=== PATIENT | male | born 1940 | race Caucasian/White ===

== ENCOUNTER → 2017-06-13 | Day surgery (SDC) | payer MEDICARE ==
[2017-06-10 14:55] VITALS: BMI 32.1
[~2017-06-13] MED LIST: MIDAZOLAM 2 MG/2 ML VIAL IVP ONE; MIDAZOLAM 2 MG/2 ML VIAL ONE; SODIUM CHLORIDE 0.9% 1,000 ML IV SCH; SODIUM CHLORIDE 0.9% 500 ML IV ONE; fentaNYL (PF) 50 MCG/ML 2 ML AMP IVP ONE; fentaNYL (PF) 50 MCG/ML 2 ML AMP ONE
[2017-06-13 10:49] VITALS: TEMP 97.7
[2017-06-13 11:16] LABS: Glucose,Whole Blood 116 mg/dL (75-99)
[2017-06-13] MEDS: BENZOCAINE SPRAY 1 CAN MUCOUS MEM ONE ×2 (11:33→11:39)
[2017-06-13 12:40] VITALS: RESP 16
[2017-06-13 12:59] VITALS: BP 123/62; PULSE 56
--- NOTE | 2017-07-01 11:23 | P.TEE ---
Indications for Procedure(s): Assessment of aortic stenosis Date of Procedure: 06/13/17 Preoperative Diagnosis: Severe aortic stenosis Postoperative Diagnosis: Moderate to severe aortic stenosis Procedure(s) Performed: MARIA M examination Description of Procedure(s): INDICATION: This patient with history of previous bypass surgery was noted to have increasing gradient across the aortic valve. Recent values are suggestive of possible severe aortic stenosis. Patient is advised to have MARIA M examination for further evaluation. CONSENT: Informed consent was obtained verbally from patient PROCEDURE:, Patient was brought to the lab in a fasting state. He was prepped and draped in the usual fashion. He was given IV Versed 2 mg and 50 g of fentanyl for conscious sedation. Patient was continuously monitored. A lubricated Omni probe was introduced into the oropharynx after his total was sprayed with Cetacaine. The probe was gently advanced into the esophagus and stomach. Multiple views were obtained. Color and pulse Doppler studies were performed. Saline contrast bubble injections also performed. Patient tolerated the procedure well FINDINGS:. The aortic valve appeared to be tricuspid with calcification and restricted opening excursion. The valve area is calculated as 0.6 2.8 by planimetry. He. Gradient of 46 with a mean of 22 was obtained across the aortic valve. These findings are size to moderate to severe aortic stenosis. Mitral valve showed mild regurgitation. Left atrial appendage is of free of any clot. The interatrial septum appeared to be intact without any spontaneous shunt. Contrast bubble injection also did not reveal any shunting. Left ankle function is good. No Sigmund plaque in the aorta IMPRESSION: #1. Moderate to severe aortic stenosis. #2. No clot in the left atrial appendage. #3. No PFO #4. Left ankle function is preserved PLAN:. Continue medical therapy. Patient did a need cardiac catheterization to rule out any progression of ischemic heart disease and possible aortic valve replacement in the near future
== END ==
LOC: CATHCVL 10:28
PROVIDERS: ATTEND Internal Medicine Cardiovascular Disease
DX: I08.0 Rheumatic disorders of both mitral and aortic valves (principal); I25.10 Atherosclerotic heart disease of native coronary artery without angina pectoris; I10 Essential (primary) hypertension; E78.5 Hyperlipidemia, unspecified; E11.9 Type 2 diabetes mellitus without complications; Z79.84 Long term (current) use of oral hypoglycemic drugs; Z87.891 Personal history of nicotine dependence; Z95.5 Presence of coronary angioplasty implant and graft; Z95.1 Presence of aortocoronary bypass graft; Z82.49 Family history of ischemic heart disease and other diseases of the circulatory system; Z79.82 Long term (current) use of aspirin; Z79.899 Other long term (current) drug therapy
CPT/HCPCS: 93312; 93320; 93325; J2250; J3010

== ENCOUNTER 2018-08-05 06:30 | Day surgery (SDC) | payer MEDICARE ==
[2018-07-24 16:32] VITALS: BMI 32.3
[~2018-08-05 06:30] MED LIST changes: +ALPRAZolam 0.25 MG TAB PO PRN; +ALPRAZolam 0.5 MG TAB PO PRN; +ASPIRIN 325 MG TAB PO STA; +ATORVASTATIN 80 MG TAB PO STA; -MIDAZOLAM 2 MG/2 ML VIAL IVP ONE; -MIDAZOLAM 2 MG/2 ML VIAL ONE; +NITROGLYCERIN SL TABS 0.4 MG TAB SUBLINGUAL PRN; -SODIUM CHLORIDE 0.9% 1,000 ML IV SCH; +SODIUM CHLORIDE 0.9% 1,000 ML in EMPTY BAG 1 BAG IV ONE; -SODIUM CHLORIDE 0.9% 500 ML IV ONE; -fentaNYL (PF) 50 MCG/ML 2 ML AMP IVP ONE; -fentaNYL (PF) 50 MCG/ML 2 ML AMP ONE
[2018-08-05 07:04] LABS: Glucose,Whole Blood 127 mg/dL (75-99)
[2018-08-05] MEDS ORDERED: LIDOCAINE 1% INJ 10MG/ML (20 ML MDV) ONE (09:09)
[2018-08-05] MEDS ORDERED: fentaNYL (PF) 50 MCG/ML 2 ML AMP ONE (09:18)
[2018-08-05] MEDS ORDERED: MIDAZOLAM (PF) 2 MG/2 ML VIAL IV ONE (09:21)
[2018-08-05] MEDS ORDERED: fentaNYL (PF) 50 MCG/ML 2 ML AMP IV ONE (09:21)
[2018-08-05] MEDS ORDERED: LIDOCAINE 1% INJ 10MG/ML (20 ML MDV) SQ ONE ×2 (09:22→09:24)
[2018-08-05] MEDS ORDERED: IV FLUID CONTINUATION 1,000 ML IV ONE (09:40)
[2018-08-05 10:14] LABS: O2 Sat Blood Gas 75.8 %
[2018-08-05] MEDS ORDERED: IOPAMIDOL-370 125ML BTL INJ ONE (10:14)
[2018-08-05] MEDS ORDERED: BIVALIRUDIN 250 MG in SODIUM CHLORIDE 0.9% 50 ML IV ONE (10:14)
[2018-08-05] MEDS ORDERED: BIVALIRUDIN BOLUS 250 MG/50 ML IV ONE (10:14)
[2018-08-05 10:15] LABS: O2 Sat Blood Gas 75.3 %
[2018-08-05 10:17] LABS: O2 Sat Blood Gas 98.2 %
[2018-08-05] MEDS ORDERED: NITROGLYCERIN 1000MCG/10ML SYRINGE INTRACORON ONE ×3 (11:39→11:47)
[2018-08-05] MEDS ORDERED: TICAGRELOR 90 MG TAB ONE (11:58)
[2018-08-05] MEDS ORDERED: ZOLPIDEM 5 MG TAB PO PRN (12:08)
[2018-08-05] MEDS ORDERED: MAG HYDROX/AL HYDROX/SIMETH 30 ML CUP PO PRN (12:08)
[2018-08-05] MEDS ORDERED: NITROGLYCERIN SL TABS 0.4 MG TAB SUBLINGUAL PRN (12:08)
[2018-08-05] MEDS ORDERED: TICAGRELOR 90 MG TAB PO ONE (12:08)
[2018-08-05] MEDS ORDERED: ATROPINE SULFATE 0.1 MG/ML 10ML SYRINGE IV PRN (12:08)
[2018-08-05] MEDS ORDERED: RX INFO: IV CONTRAST WAS GIVEN 1 EACH MISC MISCELLANE PRN (12:08)
[2018-08-05] MEDS ORDERED: FAMOTIDINE 20 MG TAB PO PRN (12:12)
[2018-08-05] MEDS ORDERED: SODIUM CHLORIDE 0.9% 1,000 ML IV SCH (12:15)
--- NOTE | 2018-08-05 12:53 | PTCA ---
PERCUTANEOUSTRANS CORORONARY ANGIOGRAPHY DATE OF SERVICE: 08/05/2018 PROCEDURE: PTCA and stenting of saphenous vein graft to RCA in the proximal and mid portion of the body of the graft. PERFORMED BY: Dr. Raleigh Trivedi. SEDATION: Moderate conscious sedation time was 41 minutes. The patient was administered Versed. His oxygen saturation, hemodynamics and EKG were monitored closely. CLINICAL INFORMATION: Mr. Dwight Cross is a 78-year-old gentleman with diabetes, hypertension, hyperlipidemia, CAD, prior bypass surgery and also mild to moderate aortic stenosis. Apparently underwent aortocoronary bypass surgery in 1989 with SAENZ to LAD, vein graft to the obtuse marginal and vein graft to the RCA. The vein graft to the obtuse marginal was occluded. He had a stenting of knik circumflex performed in 2001. He came in with symptoms of unstable angina and also has aortic stenosis. Dr. Larson performed a right and left heart catheterization and study revealed that there was a significant disease involving the vein graft to the RCA, both in the proximal and distal portion of about 90% and 80% of the calcification. He was advised intervention that was performed in the same setting. There was some tortuosity in the right iliac area. A Glidewire was used to gain access. PROCEDURE NOTE: The existing 6-Kyrgyz introducer in the right femoral artery was used to perform procedure. A Glidewire was used to advance and a right coronary bypass guide catheter was used to cannulate the coronary artery. A run-through wire was used to cross the lesion. Predilatation was performed with a 6 well mm long 2.5 caliber [place] Trek balloon. Multiple inflations were given. The distal lesion was quite tight and at 15 atmospheres. The balloon burst but there was improvement in lesion. No consequences occurred. Then, I went over with a 3.25 caliber 15 mm long Xience stent and deployed this at the distal lesion. A 12 mm long 3.5 caliber Xience stent in the proximal portion was deployed. Patient received Angiomax bolus and infusion. He received 180 mg of Brilinta. Excellent angiographic result without complication was achieved. The arterial sheath was taken out and Angio-Seal device used to secure hemostasis. The venous sheath was sutured in and she was sent to the [facility] for the sheath to be pulled in 1 hour. Excellent angiographic result without complication was achieved. Findings were discussed with the patient, his and also Dr. Larson. I expect he will be discharged tomorrow. RAYO / HANNAN: [id number] /
[2018-08-05] MEDS: LISINOPRIL 20 MG TAB PO SCH (16:44)
[2018-08-05 16:58] LABS: Glucose,Whole Blood 124 mg/dL (75-99)
--- NOTE | 2018-08-05 17:46 | P.CARDCATH ---
Date of Procedure: 08/05/18 Preoperative Diagnosis: Severe aortic stenosis by echo and also known ischemic heart disease Postoperative Diagnosis: Noncritical aortic stenosis. Critical lesions involving the RCA graft Procedure(s) Performed: Right and left heart catheterization without left ventriculography Description of Procedure: HISTORY: This is a 78-year-old gentleman with history of ischemic heart disease with a previous bypass surgery with the SAENZ graft to the LAD, vein graft to the OM branch and also vein graft to the RCA. In 2001, patient was found to have total occlusion of the vein graft to the intermediate/OM branch and patent SAENZ graft to the LAD and vein graft to the RCA. Patient had stent placement of the OM branch. Recently patient has been complaining of some chest pain and shortness of breath. Patient had echocardiogram and MARIA M were suggestive of severe aortic stenosis. Patient is advised to have a right and left heart catheterization for definitive diagnosis CONSENT:I have discussed the risks, benefits and alternative therapies for the above-mentioned procedure and for both sedation/analgesia as well as necessary blood product administration, if indicated, as they pertain to this patient. The patient has indicated understanding and acceptance of the risks and procedures discussed. PROCEDURE: Left heart catheterization: Patient was brought to the lab in a fasting state. Patient was given some IV sedation. The right groin is infiltrated with lidocaine and right femoral artery was entered using Seldinger technique. A 6-Turkmen catheter was left in place and selective coronary arteriography was performed. Patient tolerated the procedure well. Femoral angiogram was performed . Patient was found to have a critical lesion involving the vein graft to the RCA. He went on to have stent placement of the graft to the RCA. Right heart catheterization: Right heart catheterization was performed using a [place]-Demetris catheter under Seldinger technique. Patient tolerated the procedure well. Hemodynamics: #1. Right heart catheterization: Right atrial pressure was about 4-6. Right ventricular pressure was about 42/6. Pulmonary artery pressure was about 42/8-12. Pulmonary wedge pressure is about 12-14. Cardiac output by thermodilution method was 4.9. By Billie method was 5.2. The gradient across the aortic valve was only 8. There appears to be gradient between the aorta and f emoral artery suggestive of aortoiliac disease. Conscious Sedation: Versed 1 mg Fentanyl 50 g Duration to 2 minutes SELECTIVE CORONARY ARTERIOGRAPHY: LEFT MAIN: Could not be selectively engaged. It provides only blood flow to the circumflex system. Subselectively injected THE LEFT ANTERIOR DESCENDING CORONARY ARTERY: . This is totally occluded THE LEFT CIRCUMFLEX AND IS CORONARY ARTERY: Consistent OM branch and 2 other branches which appear to be patent and free of occlusive disease THE RIGHT CORONARY ARTERY: . Total occluded The VEIN GRAFT TO THE RCA: This is moderate in caliber with a diffuse plaque. There is critical 95% stenosis in the proximal and distal portion of the body of the graft. The distal mcgrath vessels appear to be relatively small in caliber. THE SAENZ GRAFT TO THE LAD: The SAENZ graft to LAD is patent throat its length except there appears to be kinking of the distal anastomosis. This has been stable. The distal LAD shows mild plaque without any significant lesions LEFT VENTRICULOGRAPHY: Not performed FINAL IMPRESSION: #1. Noncritical aortic stenosis. #2. Critical lesion involving the vein graft to the RCA PLAN: And placement of the graft to the RCA PROGNOSIS: Guarded
[2018-08-05] MEDS ORDERED: METOPROLOL SUCCINATE (ER) 50 MG TAB.ER.24H PO SCH (21:00)
[2018-08-05] MEDS ORDERED: amLODIPine 5 MG TAB PO STA (22:49)
[2018-08-06 06:41] LABS: Potassium 4.7 mmol/L (3.5-5.1)
[2018-08-06 06:58] LABS: HCT 40.8 % (39.0-53.0); HGB 13.1 gm/dL (13.0-17.5); MCH 27.5 pg (25.0-35.0); MCHC 32.1 g/dL (31.0-37.0); MCV 85.6 fL (80.0-100.0); Mean Platelet Volume 6.9; Platelet Count 290 k/uL (150-450); RBC 4.77 m/uL (4.30-5.90); RDW 15.8 % (11.5-15.5); WBC 14.2 k/uL (3.8-10.6)
[2018-08-06 07:50] LABS: Eosinophils # (M) 0.28 k/uL (0-0.7); Lymphocytes # (M) 1.56 k/uL (1.0-4.8); Monocytes # (M) 1.28 k/uL (0-1.0); Neutrophils # (M) 11.08 k/uL (1.3-7.7); Neutrophils % (M) 78 %; Nucleated Red Blood Cells 0 /100 WBC (0-0); Total Cells Counted 100
[2018-08-06 08:26] VITALS: BP 171/78; PULSE 71; RESP 20; TEMP 98.7
[2018-08-06] MEDS: LISINOPRIL 20 MG TAB PO SCH (08:36)
[2018-08-06] MEDS ORDERED: EZETIMIBE 10 MG TAB PO SCH (09:00)
[2018-08-06] MEDS ORDERED: amLODIPine 5 MG TAB PO SCH (09:00)
[2018-08-06] MEDS ORDERED: MULTIVITAMINS, THERA 1 EACH TAB PO SCH (09:00)
[2018-08-06] MEDS ORDERED: PIOGLITAZONE 15 MG TAB PO SCH (09:00)
[2018-08-06] MEDS ORDERED: FERROUS SULFATE 325 MG TAB PO SCH (09:00)
[2018-08-06] MEDS ORDERED: ASPIRIN 81 MG PO SCH (09:00)
[2018-08-06] MEDS ORDERED: CHOLECALCIFEROL 1,000 UNIT TAB PO SCH (09:00)
[2018-08-06] MEDS ORDERED: TICAGRELOR 90 MG TAB PO SCH (09:00)
--- NOTE | 2018-08-06 11:48 | P.PN ---
Subjective Progress Note Date: 08/06/18 discharge note This is a 78-year-old gentleman with history of ischemic heart disease with prior bypass surgery with a SAENZ to the LAD, vein graft to the OM branch and also vein graft to the RCA. In 2001 he was found to have a total occlusion of the vein graft to the intermediate OM branch and a patent SAENZ graft to the LAD and vein graft to the RCA. Patient had a stent placement of the OM branch. Recently the patient had been complaining of some chest discomfort with associated shortness of breath, he had an echo and a MARIA M which were suggestive of aortic stenosis. He was brought to the hospital by Dr. Larson underwent a cardiac catheterization yesterdaysubsequent stenting of the saphenous vein graft to the right coronary artery in the proximal and midportion of the graft.patient was seen and examined this morning, feels well, denies any chest pain or difficulty in breathing. Hemodynamically stable. Laboratory data was reviewed and is within normal limits. EKG from this morning shows a normal sinus rhythm with no acute changes from post-PCI. Objective - Vital Signs Vital signs: Vital Signs Temp 98.7 F 08/06/18 08:00 Pulse 71 08/06/18 08:00 Resp 20 08/06/18 08:00 BP 171/78 08/06/18 08:00 Pulse Ox 98 08/06/18 08:00 Intake & Output 08/05/18 08/06/18 08/06/18 18:59 06:59 18:59 Intake Total 1610 675 Output Total 700 900 Balance 910 -225 Weight 91.1 kg Intake: IV 1410 675 IV Fluid Continuation 1, 1000 000 ml @ 0 mls/hr IV .[facility] -[facility] Rx#:[id number] Sodium Chloride 0.9% 1, 75 675 000 ml @ 75 mls/hr IV . [id number] [facility] Rx#:[id number] Oral 200 Output: Urine 700 900 Other: Voiding Method Urinal # Voids 1 - Exam PHYSICAL EXAMINATION: GENERAL:78-year-old gentleman in no acute distress at the time of my examination HEENT: Head is atraumatic, normocephalic. Pupils equal, round. Sclera anicteric. Conjunctiva are clear. Mucous membranes of the mouth are moist. Neck is supple. There is no elevated jugular venous pressure.no carotid bruit is heard. HEART EXAMINATION: [Heart S1, S2 systolic murmur is heard. No murmur or gallop heard.] CHEST EXAMINATION:[ Lungs are clear to auscultation and precussion. No chest wall tenderness is noted on palpation or with deep breathing.] ABDOMEN: [ Soft, nontender. Bowel sounds are heard. No organomegaly noted]. EXTREMITIES:[ 2+ peripheral pulses with no evidence of peripheral edema and no calf tenderness noted].right groin soft, no evidence of any hematoma. NEUROLOGIC [patient is awake, alert and oriented X3.] . - Labs CBC & Chem 7: 08/06/18 05:57 08/06/18 05:57 Labs: Abnormal Lab Results - Last 24 Hours (Table) 08/05/18 08/06/18 08/06/18 Range/Units 16:38 05:57 05:57 WBC 14.2 H (3.8-10.6) k/uL RDW 15.8 H (11.5-15.5) % Neutrophils # (Manual) 11.08 H (1.3-7.7) k/uL Monocytes # (Manual) 1.28 H (0-1.0) k/uL Chloride 109 H (98-107) mmol/L Glucose 122 H (74-99) mg/dL POC Glucose (mg/dL) 124 H (75-99) mg/dL Assessment and Plan Plan: assessment and plan #1 status post angioplasty and stenting of the SVG to the RCA #2 known history of coronary artery disease prior bypass surgery #3 hypertension #4 hyperlipidemia #5 aortic stenosis Plan Patient may be discharged home today. We'll make him a follow-up appointment to see Dr. Larson in the office post discharge.patient will be discharged home on aspirin 81 mg daily, Lipitor 60 mg daily, Norvasc 5 mg daily as of hypertension,that he attend milligrams daily, iron one tablet daily, Zestril 20 mg daily, Toprol 50 mg at at bedtime,Brilinta 90 mg twice a day, and sublingual nitroglycerin as needed for chest pain along with his diabetic medications. DNP note has been reviewed, I agree with a documented findings and plan of care. Patient was seen and examined.
[2018-08-06] MEDS ORDERED: ATORVASTATIN 20 MG TAB PO SCH (21:00)
== END 2018-08-06 10:54 | disposition home or self-care (01) ==
LOC: CATHCVL 06:30 → 3SCARD 11:56 → CATHCVL 08-06 10:54
PROVIDERS: ATTEND Internal Medicine Cardiovascular Disease
DX: I25.10 Atherosclerotic heart disease of native coronary artery without angina pectoris (principal); I25.82 Chronic total occlusion of coronary artery; I25.810 Atherosclerosis of coronary artery bypass graft(s) without angina pectoris; I25.84 Coronary atherosclerosis due to calcified coronary lesion; I77.1 Stricture of artery; I35.0 Nonrheumatic aortic (valve) stenosis; I10 Essential (primary) hypertension; Z87.891 Personal history of nicotine dependence; E11.9 Type 2 diabetes mellitus without complications; E78.00 Pure hypercholesterolemia, unspecified; E78.5 Hyperlipidemia, unspecified; Z95.5 Presence of coronary angioplasty implant and graft; Z79.84 Long term (current) use of oral hypoglycemic drugs; Z79.82 Long term (current) use of aspirin; Z79.899 Other long term (current) drug therapy
CPT/HCPCS: 93461; 80048; 85018; 82810; 85025; C9604; C1760; C1769 ×6; C1887; C1725; C1894 ×2; C1874; J2001; J3010; J0583; Q9967; J2250

== ENCOUNTER → 2018-08-25 | Outpatient (CLI) | payer MEDICARE | END | disposition home or self-care (01) | LOC: RADCTMAIN 13:11 | PROVIDERS: ATTEND Internal Medicine Cardiovascular Disease | DX: I71.4 Abdominal aortic aneurysm, without rupture (principal) | CPT/HCPCS: 82565; 84520 ==

== ENCOUNTER → 2018-09-09 | Outpatient (CLI) | payer MEDICARE ==
--- NOTE | 2018-09-10 15:54 | CT ---
EXAMINATION TYPE: CT angio abd aorta w/Runoff DATE OF EXAM: 09/09/2018 COMPARISON: None. 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 CONTRAST: CTA scan of the abdomen and pelvis with lower extremity runoff is performed without oral but with IV Contrast, patient injected with 80 mL of Isovue 370. Three-D reconstructed images are created on an zintin workstation and reviewed. FINDINGS: VASCULAR: There is moderate to severe peripheral calcified plaque of the abdominal aorta extending in to branch vessels. No significant stenosis and celiac artery or SMA or bilateral single renal arterie s though more prominent calcified plaque is seen in origin of right renal artery. Patent CARLOS is seen. Moderate to severe calcified plaque in common iliac arteries bilaterally without significant stenosis . There is a patent internal iliac arteries bilaterally moderate to severe left-sided plaque and mode rate distal right-sided plaque. No obvious skin stenosis. Patent external iliac arteries without sign ificant plaque or stenosis. There is moderate plaque at the common femoral artery level and bilateral groin. There is successful bifurcation into right superficial and deep femoral arteries without significant stenosis. Right superficial femoral artery shows moderate calcified plaque without significant stenos is there is additional moderate calcified plaque extending into popliteal artery. There is suboptimal opacification below knee successful visualization of bifurcation trifurcation with fairly moderate t o severe peripheral calcified plaque. No obvious stenosis or occlusion is seen with 2 vessel flow at level of ankle noted. Left side shows successful bifurcation without significant stenosis. Moderate calcified plaque is see n in the superficial femoral artery extending into popliteal artery less prominent than on the left s alf. There is successful visualization of bifurcation trifurcation with more moderate to severe perip heral calcified plaque, there is successful two-vessel flow near ankle joint. No significant stenosis is evident. No aneurysmal change in the abdominal aorta. No linear hypodensity to suggest dissection. LUNG BASES: There is partial visualization of sternal wires presumed from CABG procedure LIVER/GB: No significant abnormality is appreciated. PANCREAS: No significant abnormality is seen. SPLEEN: Occasional calcification consistent with product of old granulomatous disease.. ADRENALS: No significant abnormality is seen. KIDNEYS: Slight asymmetric diminished size to left kidney without cortical thinning or hydronephrosis . BOWEL: Scattered colonic diverticula most prominent in the sigmoid colon. PROSTATE/SEMINAL VESICLES: Central zone calcifications seen in prostate gland measuring upper limits of normal in size. Adjacent pelvic phleboliths. LYMPH NODES: No greater than 1cm abdominal or pelvic lymph nodes are appreciated. OSSEOUS STRUCTURES: Dextroconvex scoliosis lumbar spine. [id number]-[id number] multilevel spurring in th e thoracolumbar spine. EXTREMITIES: Degenerative changes bilateral knees most prominent left tibial tibiofemoral compartment . OTHER: Fairly moderate to severe diffuse calcified atherosclerotic changes without significant stenos is identified in abdomen, pelvis, or either lower extremity through the ankle joint. IMPRESSION: No significant acute finding is seen to account for patient's clinical symptoms.
== END | disposition home or self-care (01) ==
LOC: RADCTMAIN 12:59
PROVIDERS: ATTEND Internal Medicine Cardiovascular Disease
DX: I71.4 Abdominal aortic aneurysm, without rupture (principal)
CPT/HCPCS: 82565; 84520; 75635; 36415; Q9967

== ENCOUNTER → 2019-07-01 | Outpatient (CLI) | payer MEDICARE ==
[~2019-07-01] MED LIST changes: -ALPRAZolam 0.25 MG TAB PO PRN; -ALPRAZolam 0.5 MG TAB PO PRN; -ASPIRIN 325 MG TAB PO STA; -ATORVASTATIN 80 MG TAB PO STA; +LIDOCAINE 1% INJ 10MG/ML (20 ML MDV) ONE; -NITROGLYCERIN SL TABS 0.4 MG TAB SUBLINGUAL PRN; -SODIUM CHLORIDE 0.9% 1,000 ML in EMPTY BAG 1 BAG IV ONE
== END | disposition home or self-care (01) ==
LOC: LABWHC1 12:28
PROVIDERS: ATTEND Internal Medicine Cardiovascular Disease
DX: U07.1 COVID-19 (principal)
CPT/HCPCS: 87635

== ENCOUNTER 2019-07-03 07:58 | Day surgery (SDC) | payer MEDICARE ==
[~2019-07-03 07:58] MED LIST changes: +ALPRAZolam 0.25 MG TAB PO PRN; +ALPRAZolam 0.5 MG TAB PO PRN; +ASPIRIN 325 MG TAB PO STA; +ATORVASTATIN 80 MG TAB PO STA; -LIDOCAINE 1% INJ 10MG/ML (20 ML MDV) ONE; +NITROGLYCERIN SL TABS 0.4 MG TAB SUBLINGUAL PRN; +SODIUM CHLORIDE 0.9% 1,000 ML in EMPTY BAG 1 BAG IV ONE
[2019-07-03 08:38] LABS: Glucose,Whole Blood 137 mg/dL (75-99)
[2019-07-03 08:44] LABS: HCT 41.1 % (39.0-53.0); HGB 12.8 gm/dL (13.0-17.5); MCH 26.6 pg (25.0-35.0); MCHC 31.2 g/dL (31.0-37.0); MCV 85.4 fL (80.0-100.0); Mean Platelet Volume 6.5; Platelet Count 366 k/uL (150-450); RBC 4.81 m/uL (4.30-5.90); RDW 14.1 % (11.5-15.5)
[2019-07-03] MEDS ORDERED: fentaNYL (PF) 50 MCG/ML 2 ML AMP ONE (08:54)
[2019-07-03] MEDS ORDERED: fentaNYL (PF) 50 MCG/ML 2 ML AMP IV ONE (09:01)
[2019-07-03] MEDS ORDERED: MIDAZOLAM 2 MG/2 ML VIAL IV ONE (09:01)
[2019-07-03] MEDS ORDERED: LIDOCAINE 1% INJ 10MG/ML (20 ML MDV) SQ ONE (09:06)
[2019-07-03 09:11] LABS: Calcium 9.3 mg/dL (8.4-10.2); Potassium 4.6 mmol/L (3.5-5.1)
[2019-07-03 09:12] LABS: Eosinophils # (M) 1.17 k/uL (0-0.7); Lymphocytes # (M) 1.56 k/uL (1.0-4.8); Monocytes # (M) 0.65 k/uL (0-1.0); Neutrophils # (M) 9.62 k/uL (1.3-7.7); Neutrophils % (M) 74 %; Nucleated Red Blood Cells 0 /100 WBC (0-0); Total Cells Counted 100
[2019-07-03 09:13] LABS: Poikilocytosis (M) Present
[2019-07-03] MEDS ORDERED: BIVALIRUDIN BOLUS 250 MG/50 ML IV ONE (10:11)
[2019-07-03] MEDS ORDERED: BIVALIRUDIN 250 MG in SODIUM CHLORIDE 0.9% 50 ML IV ONE (10:11)
[2019-07-03] MEDS ORDERED: NITROGLYCERIN 1000MCG/10ML SYRINGE INTRACORON ONE (10:20)
[2019-07-03] MEDS ORDERED: IOPAMIDOL-370 125ML BTL INJ ONE (10:25)
[2019-07-03] MEDS ORDERED: IOPAMIDOL-370 100ML BTL INJ ONE (10:29)
[2019-07-03] MEDS ORDERED: ATROPINE SULFATE 0.1 MG/ML 10ML SYRINGE IV PRN (10:43)
[2019-07-03] MEDS ORDERED: RX INFO: IV CONTRAST WAS GIVEN 1 EACH MISC MISCELLANE PRN (10:43)
[2019-07-03] MEDS ORDERED: NITROGLYCERIN SL TABS 0.4 MG TAB SUBLINGUAL PRN (10:43)
[2019-07-03] MEDS ORDERED: ZOLPIDEM 5 MG TAB PO PRN (10:43)
[2019-07-03] MEDS ORDERED: MAG HYDROX/AL HYDROX/SIMETH 30 ML CUP PO PRN (10:43)
[2019-07-03] MEDS ORDERED: SODIUM CHLORIDE 0.9% 1,000 ML IV SCH (10:45)
--- NOTE | 2019-07-03 11:09 | PTCA ---
PERCUTANEOUSTRANS CORORONARY ANGIOGRAPHY Mr. Cross is an 79-year-old male, status post coronary artery bypass grafting and percutaneous revascularization who has been followed by Dr. Larson and recently had symptoms consistent with angina pectoris. He underwent cardiac catheterization today by Dr. Larson and was found to have critical stenosis involving the distal segment of the saphenous vein graft to the right coronary artery distal to the prior stent. In view of that, recommendation made regarding angioplasty and stenting, the procedures, risks, and complication were discussed with the patient who is in full understanding and agreement. PROCEDURE: A 6-Peruvian right coronary bypass guiding catheter was introduced in the system after cannulating the ostium of the bypass. A 0.014 balanced medium weight J-wire was advanced across the lesion, positioned distally, then a 2.5 x 12 mm Trek balloon was advanced, one inflation at 10 atmospheres was done. Following that, the balloon was removed and a 3.25 x 15 mm Xience Sue stent was deployed, postdilated at 16 atmospheres after the last inflation, after appropriate wait, the balloon and the guidewire were withdrawn back in the guiding catheter. Images were obtained and repeated. Those images reveal stable successful stenting. At that point, the guiding catheter, the balloon and the guidewire were removed. The sheath was removed, hemostasis was obtained with deployment of an Angio-Seal. There was no immediate complication. Patient was returned to his room in stable condition. Of note, the patient had no chest discomfort or significant EKG changes with the inflations. He received Angiomax per protocol and was continued on clopidogrel. RESULTS: Successful stenting of the distal segment of the saphenous vein graft to the right coronary artery with reduction of stenosis from 99% to 0%. RECOMMENDATION: Patient will be continued on aspirin, Plavix and statin. The importance of dual antiplatelet treatment were discussed with the patient and he is in full understanding and agreement. Duration of procedure is 22 minutes. MMODL / IJN: [id number] /
[2019-07-03 11:14] LABS: Glucose,Whole Blood 113 mg/dL (75-99)
--- NOTE | 2019-07-03 11:22 | P.CARDCATH ---
Date of Procedure: 07/03/19 Preoperative Diagnosis: Unstable angina Postoperative Diagnosis: Critical lesion involving the vein graft to the RCA near the stented area in the distal portion Procedure(s) Performed: Left heart catheterization without left ventriculography Description of Procedure: HISTORY: This is a 79-year-old gentleman with history of multiple risk factors including diabetes with history of previous bypass surgery and recent stent placement of the graft to the RCA has been experiencing postprandial belching and fullness associated with discomfort in both arms. Symptoms are suggestive of crescendo angina. Patient is advised to have cardiac catheterization CONSENT:I have discussed the risks, benefits and alternative therapies for the above-mentioned procedure and for both sedation/analgesia as well as necessary blood product administration, if indicated, as they pertain to this patient. The patient has indicated understanding and acceptance of the risks and procedures discussed. PROCEDURE: Patient was brought to the lab in a fasting state. Patient was given some IV sedation. The right groin is infiltrated with lidocaine and right femoral artery was entered using Seldinger technique. A 6-Belarusian catheter was left in place and selective coronary arteriography was performed. Patient tolerated the procedure well. Patient went on to have stent placement Grafts to the RCA Femoral angiogram was performed and Angio-Seal was applied for hemostasis. No immediate complications were noted and patient was transferred to [facility] in a stable condition Conscious Sedation: Versed 1mg Fentanyl 25 g Duration 17minutes HEMODYNAMICS: The aortic pressure was 110/70. The left ventricular end- diastolic pressure was not measured SELECTIVE CORONARY ARTERIOGRAPHY: LEFT MAIN: Not studied THE LEFT ANTERIOR DESCENDING CORONARY ARTERY: Not studied but total occluded from previous THE LEFT CIRCUMFLEX AND IS CORONARY ARTERY: Not studied THE RIGHT CORONARY ARTERY: Not studied The SAENZ graft to the LAD: This is patent throat its length with a kink at the distal anastomosis. This has been stable compared to the previous studies. The vein graft to the RCA: Mrs. moderate caliber vessel with diffuse disease with a 95% stenosis in the distal portion near the previous stent LEFT VENTRICULOGRAPHY: Not performed FINAL IMPRESSION:. Critical lesion involving the graft to the RCA PLAN: Stent placement of the RCA to be done by Dr. Cloud PROGNOSIS: Guarded
[2019-07-03 13:28] VITALS: BMI 31.2
[2019-07-03 16:41] LABS: Glucose,Whole Blood 112 mg/dL (75-99)
[2019-07-03 16:50] VITALS: RESP 18
[2019-07-03 20:27] LABS: Glucose,Whole Blood 132 mg/dL (75-99)
[2019-07-03] MEDS ORDERED: METOPROLOL SUCCINATE (ER) 50 MG TAB.ER.24H PO SCH (21:00)
[2019-07-04 06:00] LABS: Glucose,Whole Blood 147 mg/dL (75-99)
[2019-07-04] MEDS ORDERED: PANTOPRAZOLE 40 MG TABLET PO SCH (07:30)
[2019-07-04 08:05] LABS: Potassium 4.9 mmol/L (3.5-5.1)
[2019-07-04 08:06] LABS: Calcium 9.5 mg/dL (8.4-10.2)
[2019-07-04 08:14] VITALS: BP 171/69; PULSE 67; TEMP 98.2
[2019-07-04] MEDS ORDERED: LISINOPRIL 20 MG TAB PO SCH (09:00)
[2019-07-04] MEDS ORDERED: FERROUS SULFATE 325 MG TAB PO SCH (09:00)
[2019-07-04] MEDS ORDERED: MULTIVITAMINS, THERA 1 EACH TAB PO SCH (09:00)
[2019-07-04] MEDS ORDERED: VITAMIN C GUMMY PO SCH (09:00)
[2019-07-04] MEDS ORDERED: EZETIMIBE 10 MG TAB PO SCH (09:00)
[2019-07-04] MEDS ORDERED: amLODIPine 5 MG TAB PO SCH (09:00)
[2019-07-04] MEDS ORDERED: ASPIRIN 81 MG PO SCH (09:00)
[2019-07-04] MEDS ORDERED: CHOLECALCIFEROL 1,000 UNIT TAB PO SCH (09:00)
--- NOTE | 2019-07-04 10:26 | PN ---
PROGRESS NOTE Mr. Cross is an 79-year-old male who presented with symptoms of angina pectoris, underwent cardiac catheterization by Dr. Larson and was found to have significant stenosis in the saphenous vein graft to the right coronary artery, underwent stenting of that vessel. He is doing well this morning. Ambulating without difficulty. Denying any chest pain. No dizziness. No palpitation. No nausea. He continues to be in sinus mechanism. Continues to be on aspirin 81 mg daily, amlodipine 5 mg daily, Lipitor 60 mg daily, Plavix 75 mg daily, Zetia 10 mg daily, lisinopril 20 mg daily, metoprolol succinate 50 mg daily. PHYSICAL EXAMINATION: Blood pressure running in the 120s to 150s with a heart rate in the 60s. LUNGS: Clear. HEART: Regular rate and rhythm S1, S2. No S3 with systolic murmur. No diastolic murmur. No rub. ABDOMEN: Soft and nontender. EXTREMITIES: No edema. Right groin, no hematoma. LAB DATA: Lab data revealed BUN and creatinine 60 and 1.17. IMPRESSION: 1. Status post stenting of the saphenous vein graft to the right coronary artery. 2. Hypertension. 3. Hyperlipidemia. 4. Diabetes mellitus. RECOMMENDATIONS: Patient will be discharged home today and followed as an outpatient next week with Dr. Larson. MMODL / HANNAN: [id number] /
[2019-07-04] MEDS ORDERED: CLOPIDOGREL 75 MG TAB PO SCH (10:44)
[2019-07-04] MEDS ORDERED: ATORVASTATIN 20 MG TAB PO SCH (21:00)
== END 2019-07-04 09:36 | disposition home or self-care (01) ==
LOC: CATHCVL 07:58 → 3SCARD 11:03 → CATHCVL 07-04 09:36
PROVIDERS: ATTEND Internal Medicine Cardiovascular Disease
DX: I25.710 Atherosclerosis of autologous vein coronary artery bypass graft(s) with unstable angina pectoris (principal); I24.9 Acute ischemic heart disease, unspecified; I10 Essential (primary) hypertension; I25.10 Atherosclerotic heart disease of native coronary artery without angina pectoris; I35.0 Nonrheumatic aortic (valve) stenosis; E11.9 Type 2 diabetes mellitus without complications; E78.5 Hyperlipidemia, unspecified; F17.210 Nicotine dependence, cigarettes, uncomplicated; Z95.1 Presence of aortocoronary bypass graft; Z79.82 Long term (current) use of aspirin; Z79.02 Long term (current) use of antithrombotics/antiplatelets; Z79.899 Other long term (current) drug therapy; Z79.84 Long term (current) use of oral hypoglycemic drugs
CPT/HCPCS: 93455; 80048 ×2; 85025; C9604; C1769 ×5; C1760; C1887; C1725; C1894; C1874; J2250; J2001; J3010; J0583; Q9967 ×2

== ENCOUNTER 2020-01-01 07:37 | Day surgery (SDC) | payer MEDICARE ==
[2019-12-30 13:12] VITALS: BMI 32.3
[~2020-01-01 07:37] MED LIST changes: -ATORVASTATIN 80 MG TAB PO STA; -NITROGLYCERIN SL TABS 0.4 MG TAB SUBLINGUAL PRN
[2020-01-01] MEDS ORDERED: ASPIRIN 81 MG ONE (08:00)
[2020-01-01] MEDS ORDERED: ASPIRIN 81 MG PO ONE (08:02)
[2020-01-01 08:08] LABS: Glucose,Whole Blood 146 mg/dL (75-99)
[2020-01-01 08:17] LABS: HCT 46.7 % (39.0-53.0); HGB 15.1 gm/dL (13.0-17.5); MCH 28.4 pg (25.0-35.0); MCHC 32.3 g/dL (31.0-37.0); MCV 87.8 fL (80.0-100.0); Mean Platelet Volume 6.3; Platelet Count 349 k/uL (150-450); RBC 5.32 m/uL (4.30-5.90); RDW 14.7 % (11.5-15.5); WBC 13.6 k/uL (3.8-10.6)
[2020-01-01 08:28] LABS: Calcium 9.3 mg/dL (8.4-10.2); Potassium 4.7 mmol/L (3.5-5.1)
[2020-01-01] MEDS ORDERED: fentaNYL (PF) 50 MCG/ML 2 ML AMP ONE (08:29)
[2020-01-01 08:40] LABS: Basophils # (M) 0.14 k/uL (0-0.2); Eosinophils # (M) 0.68 k/uL (0-0.7); Lymphocytes # (M) 2.45 k/uL (1.0-4.8); Monocytes # (M) 0.95 k/uL (0-1.0); Neutrophils # (M) 9.38 k/uL (1.3-7.7); Neutrophils % (M) 69 %; Nucleated Red Blood Cells 0 /100 WBC (0-0); Total Cells Counted 100
[2020-01-01] MEDS ORDERED: BENZOCAINE SPRAY 1 CAN MUCOUS MEM ONE (08:41)
[2020-01-01] MEDS ORDERED: IV FLUID CONTINUATION 800 ML IV ONE (08:48)
[2020-01-01] MEDS: MIDAZOLAM 2 MG/2 ML VIAL IVP ONE ×2 (08:51→08:53)
[2020-01-01] MEDS: fentaNYL (PF) 50 MCG/ML 2 ML AMP IVP ONE ×2 (08:51→08:53)
[2020-01-01] MEDS ORDERED: LIDOCAINE 1% INJ 10MG/ML (20 ML MDV) ONE (08:52)
[2020-01-01] MEDS ORDERED: VERAPAMIL 2.5 MG/ML 2 ML AMP ONE (08:52)
--- NOTE | 2020-01-01 09:24 | P.TEE ---
Indications for Procedure(s): Severe aortic stenosis Date of Procedure: 01/01/20 Preoperative Diagnosis: Severe aortic stenosis Postoperative Diagnosis: Severe stenosis Procedure(s) Performed: MARIA M Description of Procedure(s): INDICATION: This is a 79-year-old gentleman with history of ischemic heart disease with previous bypass surgery and also stent placement of the graft to the RCA done recently in June of this year has been experiencing shortness of breath and chest discomfort. Transthoracic echo showed severe aortic stenosis. Patient is advised to have MARIA M examination for further evaluation. The aortic valve CONSENT: . Informed consent was obtained from the patient verbally PROCEDURE: Patient was brought to the lab in a fasting state. He was prepped and draped in the usual fashion. The throat was sprayed with Hurricaine. A lubricated Omni probe was introduced in the oropharynx and was advanced into the esophagus and also stomach. Multiple views were obtained. Patient was given 2 mg Versed and 50 of fentanyl for sedation. Color, pulsed and continuous and Doppler studies were performed. Saline contrast bubble injections also performed. Patient tolerated the procedure well. No immediate complications FINDINGS: . The aortic valve is heavily calcified with restricted opening excursion. Appears to be tricuspid. The valve area by planimetry is about 0.8 cm. A peak gradient of 80 with a mean of 43 was obtained across the aortic valve suggestive of severe aortic stenosis. There is mild mitral regurgitation and mild tricuspid regurgitation. Left atrial appendage is free of any clot. Interatrial septum is intact without any shunt. There is left atrial enlargement. Left ventricle function appear to be fair. There is moderate plaque in the aorta. Saline contrast bubble injections did not reveal any crossing of bubbles across the septum of the atria IMPRESSION: #1. Severe aortic stenosis. #2. Mild mitral regurgitation #3. No PFO #4. No clot in the left atrial appendage. 5. Fairly preserved LV function. #6. Left atrial enlargement PLAN: Patient needs aortic valve replacement . Patient is going to have a cardiac catheterization. May consider TAVR approach.
[2020-01-01] MEDS ORDERED: LIDOCAINE 1% INJ 10MG/ML (20 ML MDV) SQ ONE (09:31)
[2020-01-01] MEDS ORDERED: BIVALIRUDIN 250 MG in SODIUM CHLORIDE 0.9% 50 ML IV ONE (10:11)
[2020-01-01] MEDS ORDERED: BIVALIRUDIN BOLUS 250 MG/50 ML IV ONE (10:11)
--- NOTE | 2020-01-01 10:27 | P.CARDCATH ---
Date of Procedure: 01/01/20 Preoperative Diagnosis: Symptoms of shortness of breath, history of previous bypass and stent placement and also severe aortic stenosis Postoperative Diagnosis: Significant stenosis involving the graft to the RCA proximal to the stent. Procedure(s) Performed: Left heart catheterization without left ventriculography Description of Procedure: HISTORY: This is a 79-year-old gentleman with history of ischemic heart disease with previous bypass surgery with SAENZ graft to the LAD and vein graft to the RCA. Cardiac catheterization in June showed significant stenosis involving graft to the RCA in the proximal and mid portions. Patient had stent placement of both lesions. Patient has been experiencing exertional shortness of breath and chest tightness and gaseous feeling. Patient is advised to have a cardiac cath for definitive diagnosis CONSENT:I have discussed the risks, benefits and alternative therapies for the above-mentioned procedure and for both sedation/analgesia as well as necessary blood product administration, if indicated, as they pertain to this patient. The patient has indicated understanding and acceptance of the risks and procedures discussed. PROCEDURE: Patient was brought to the lab in a fasting state. Patient was given some IV sedation. The right groin is infiltrated with lidocaine and right femoral artery was entered using Seldinger technique. A 6-Niuean catheter was left in place and selective coronary arteriography and selective injection of the SAENZ graft and vein graft to the RCA was performed Patient tolerated the procedure well. Patient went on to have stent placement of the vein graft to the RCA and proximal portion. No immediate complications were noted and patient was transferred to [facility] in a stable condition Conscious Sedation: Versed 0mg Fentanyl 0 g Duration 25minutes HEMODYNAMICS: Aortic pressure is about 95/60. Left ventricle end-diastolic pressures were not measured SELECTIVE CORONARY ARTERIOGRAPHY: LEFT MAIN: Patent THE LEFT ANTERIOR DESCENDING CORONARY ARTERY: Totally occluded in the proximal portion THE LEFT CIRCUMFLEX AND IS CORONARY ARTERY: . Totally occluded after giving 2 OM branches. The OM branch are free of occlusive disease THE RIGHT CORONARY ARTERY: . Totally occluded from the previous catheterization. The SAENZ graft to the LAD, this is patent throat its length except there appears to be an eccentric narrowing at the distal anastomosis. This has been there on the previous studies. The vein graft to the RCA: This developed a new lesion in the proximal portion of the graft proximal to the previous stent. Seemed to be about 80% eccentric lesion LEFT VENTRICULOGRAPHY: Not performed FINAL IMPRESSION: . Critical lesion involving the vein graft to the RCA. Patent SAENZ graft to the LAD. All [place] vessels are totally occluded except 2 OM branches/intermediate branches. These branches are free of occlusive disease. There are collaterals from the RCA to the circumflex and critical aortic stenosis by echo and MARIA M PLAN: Stent placement of the proximal portion of the graft to the RCA. Aortic valve replacement with Approach PROGNOSIS: Fair
[2020-01-01] MEDS ORDERED: IOPAMIDOL-370 125ML BTL INJ ONE (10:29)
[2020-01-01] MEDS ORDERED: MAG HYDROX/AL HYDROX/SIMETH 30 ML CUP PO PRN (10:42)
[2020-01-01] MEDS ORDERED: ATROPINE SULFATE 0.1 MG/ML 10ML SYRINGE IV PRN (10:42)
[2020-01-01] MEDS ORDERED: ZOLPIDEM 5 MG TAB PO PRN (10:42)
[2020-01-01] MEDS ORDERED: RX INFO: IV CONTRAST WAS GIVEN 1 EACH MISC MISCELLANE PRN (10:42)
[2020-01-01] MEDS ORDERED: NITROGLYCERIN SL TABS 0.4 MG TAB SUBLINGUAL PRN (10:42)
[2020-01-01] MEDS ORDERED: SODIUM CHLORIDE 0.9% 1,000 ML IV SCH (10:45)
--- NOTE | 2020-01-01 12:25 | PTCA ---
PERCUTANEOUSTRANS CORORONARY ANGIOGRAPHY Mr. Cross is an 79-year-old male with a known history of coronary artery disease, history of aortic valve disease status post coronary artery bypass grafting, prior stenting of the saphenous vein graft to the right coronary artery, who has been complaining of progressive dyspnea on exertion, was found to have severe aortic stenosis and underwent cardiac catheterization and was found to have a significant stenosis in the saphenous vein graft to the right coronary artery proximal to the stented segment. In view of that, recommendation was made regarding angioplasty and stenting. The procedures, risks, and complications were discussed with the patient who is in full understanding and agreement. PROCEDURE DETAILS: A 6-Lux[place]bourgish right coronary bypass guiding catheter was introduced in the system. After cannulating the left main, a 0.014 balanced medium weight J-wire was advanced across the lesion positioned distally. Then a 3.25 x 12 mm Xience Sue stent was deployed at 16 atmospheres. Following that the balloon was removed. The balloon was removed and a 3.5 x 15 mm NC Trek balloon was advanced and multiple inflations, maximum of 16 atmospheres were done. After the last inflation, after appropriate wait, the balloon and the guide wire was withdrawn back in the guiding catheter. Images were obtained and repeated. Those images reveal stable successful stenting. At that point, the guiding catheter, the balloon and the guidewire were removed. The sheath was removed. Hemostasis was obtained with deployment of an Angio-Seal. There was no immediate complications. Patient is returned to his room in stable condition. Of note, the patient had no chest discomfort or EKG changes with the inflations. He received Angiomax per protocol as well as continued on clopidogrel. RESULTS: Successful stenting of the proximal segment of the saphenous vein graft to the right coronary artery with reduction of stenosis from 80% to less than 5%. RECOMMENDATIONS: Patient will be continued on aspirin, Plavix, statin. The importance of dual antiplatelet treatment were discussed with the patient who is in full understanding and agreement. The patient will be evaluated for undergoing transaortic valve replacement. Duration of sedation is 18 minutes. RAYO / HANNAN: [id number] /
--- NOTE | 2020-01-01 16:31 | P.GSCN ---
<Elida Parikh - Last Filed: 01/01/20 16:09> History of Present Illness Consult date: 01/01/20 Reason for Consult: Severe aortic stenosis Requesting physician: Zina Larson History of present illness: This is an 79-year-old gentleman who follows on an outpatient basis with Dr. Love for primary care and Dr. Larson for cardiology. He has a previous medical history of coronary artery disease with previous 3 vessel CABG in 1989 with the SAENZ to the LAD and saphenous vein grafts to the RCA and the third obtuse marginal artery with subsequent placement of stent to the vein graft to the RCA, aortic stenosis, hypertension, hyperlipidemia, ics-oqxsikn-nuqexwrwn diabetes mellitus, left carotid stenosis status post endarterectomy in 2008, previous heavy tobacco dependence. He has had continued complaints of exertional dyspnea. In June of this year he underwent catheterization which revealed patent SAENZ to the LAD but diffuse disease with 95% stenosis in the distal portion of the vein graft to the RCA near the previous stent. At that time another stent was placed with reduction of stenosis to 0%. He has continued to have exertional dyspnea as well as chest tightness and was recommended to undergo repeat heart catheterization as well as transesophageal echocardiogram. Heart catheterization demonstrated critical lesion involving the vein graft to the RCA with patent SAENZ to the LAD. Transesophageal echocardiogram demonstrated severe aortic stenosis with aortic valve area 0.8 cm, peak/mean gradients 80 mmHg/[address] Larson did discuss the option of repeat open heart surgery with coronary bypass along with aortic valve replacement. The patient adamantly stated he does not want another open heart surgery. Decision was made to re-stent the vein graft to the RCA with referral to Dr. Rock for TAVR consideration. Review of Systems Review of systems was completed and was negative except as noted - Cardiovascular Reports as per HPI, Reports chest pain, Reports dyspnea on exertion Past Medical History Past Medical History: Coronary Artery Disease (CAD), Diabetes Mellitus, Hearing Disorder / Deafness, Hyperlipidemia, Hypertension Additional Past Medical History / Comment(s): SOB w/exertion, "LEAKY HEART VALVE." History of Any Multi-Drug Resistant Organisms: None Reported Past Surgical History: Coronary Bypass/CABG, Heart Catheterization With Stent Additional Past Surgical History / Comment(s): CABG 1989 (SAENZ to the LAD, vein graft to the RCA, vein graft to the third obtuse marginal). LT CAROTID ARTERY endarterectomy 2008. PTCA W/ 2 STENTS. 08/05/18 stent RCA, 07/03/19 stent to RCA graft, 01/01/2020 stent to the RCA graft Past Anesthesia/Blood Transfusion Reactions: No Reported Reaction Date of Last Stent Placement:: 01/01/20 Past Psychological History: No Psychological Hx Reported Smoking Status: Former smoker Past Alcohol Use History: Occasional Additional Past Alcohol Use History / Comment(s): SMOKED 30 YEARS, 1 PPD, QUIT 2002 OR BEFORE Past Drug Use History: None Reported - Past Family History Mother Family Medical History: Cancer Medications and Allergies Home Medications Medication Instructions Recorded Confirmed Type Aspirin [Adult Low Dose Aspirin EC] 81 mg PO HS 06/10/17 01/01/20 History Atorvastatin [Lipitor] 60 mg PO HS 06/10/17 01/01/20 History Cholecalciferol (Vitamin D3) 2,000 unit PO DAILY 06/10/17 01/01/20 History [Vitamin D3] Ezetimibe [Zetia] 10 mg PO DAILY 06/10/17 01/01/20 History Ferrous Sulfate [Iron (65 MG 325 mg PO DAILY 06/10/17 01/01/20 History Elemental)] Metoprolol Succinate [Toprol XL] 50 mg PO HS 06/10/17 01/01/20 History Multivitamins, Thera [Multivitamin 1 tab PO DAILY 06/10/17 01/01/20 History (formulary)] Vitamin C Gummy 1 tab PO DAILY 06/10/17 01/01/20 History Benazepril HCl 20 mg PO DAILY 07/24/18 01/01/20 History Nitroglycerin Sl Tabs [Nitrostat] 0.4 mg SUBLINGUAL Q5M PRN #25 tab 08/06/18 01/01/20 Rx sitaGLIPtin PHOS/metFORMIN HCL 1 each PO DAILY #0 08/06/18 01/01/20 Rx [Janumet Xr 50-500 mg Tablet] Clopidogrel [Plavix] 75 mg PO DAILY 07/02/19 01/01/20 History Pantoprazole Sodium 40 mg PO DAILY 07/02/19 01/01/20 History Isosorbide Mononitrate [Isosorbide 30 mg PO DAILY 01/01/20 01/01/20 History Mononitrate ER] amLODIPine [Norvasc] 10 mg PO DAILY 01/01/20 01/01/20 History Allergies Allergy/AdvReac Type Severity Reaction Status Date / Time No Known Allergies Allergy Verified 12/30/19 13:07 Surgical - Exam Vital Signs Temp Pulse Resp BP Pulse Ox 98.2 F 95 18 127/59 97 01/01/20 08:03 01/01/20 08:03 01/01/20 08:03 01/01/20 08:03 01/01/20 08:03 - General well developed, well nourished, no distress, no pain - Eyes normal ocular movement - ENT Patient does have partial dentures, but does have his own teeth, states he sees a dentist every 6 months decreased hearing, dentures - Neck no masses, no bruits, trachea midline - Respiratory Lungs sounds diminished bilaterally. Respirations even, nonlabored. Currently on room air with oxygen saturation 98%. No chest wall deformities. No clubbing or cyanosis present. - Cardiovascular S1, S2 present. Regular rate and rhythm, sinus rhythm on telemetry. Sternum stable. Palpable peripheral pulses bilaterally. No edema present. No calf pain or tenderness noted. - Abdomen Abdomen: soft, non tender, bowel sounds - Genitourinary Deferred - Rectum Deferred - Integumentary Anterior chest incision well healed no rash, no growths - Neurologic normal coordination, normal sensation - Musculoskeletal normal gait, normal posture - Psychiatric oriented to time, oriented to person, oriented to place, speech is normal, memory intact Results - Labs 01/01/20 07:45 01/01/20 07:45 Abnormal Lab Results - Last 24 Hours (Table) 01/01/20 01/01/20 01/01/20 Range/Units 07:45 07:45 07:58 WBC 13.6 H (3.8-10.6) k/uL Neutrophils # (Manual) 9.38 H (1.3-7.7) k/uL Glucose 165 H (74-99) mg/dL POC Glucose (mg/dL) 146 H (75-99) mg/dL Diabetes panel 01/01/20 Range/Units 07:45 Sodium 141 (137-145) mmol/L Potassium 4.7 (3.5-5.1) mmol/L Chloride 107 (98-107) mmol/L Carbon Dioxide 23 (22-30) mmol/L BUN 20 (9-20) mg/dL Creatinine 1.25 (0.66-1.25) mg/dL Glucose 165 H (74-99) mg/dL Calcium 9.3 (8.4-10.2) mg/dL Calcium panel 01/01/20 Range/Units 07:45 Calcium 9.3 (8.4-10.2) mg/dL Pituitary panel 01/01/20 Range/Units 07:45 Sodium 141 (137-145) mmol/L Potassium 4.7 (3.5-5.1) mmol/L Chloride 107 (98-107) mmol/L Carbon Dioxide 23 (22-30) mmol/L BUN 20 (9-20) mg/dL Creatinine 1.25 (0.66-1.25) mg/dL Glucose 165 H (74-99) mg/dL Calcium 9.3 (8.4-10.2) mg/dL Adrenal panel 01/01/20 Range/Units 07:45 Sodium 141 (137-145) mmol/L Potassium 4.7 (3.5-5.1) mmol/L Chloride 107 (98-107) mmol/L Carbon Dioxide 23 (22-30) mmol/L BUN 20 (9-20) mg/dL Creatinine 1.25 (0.66-1.25) mg/dL Glucose 165 H (74-99) mg/dL Calcium 9.3 (8.4-10.2) mg/dL - Imaging Additional studies: Heart catheterization films and MARIA M films reviewed with Dr. Rock Assessment and Plan Assessment: 1. Severe aortic stenosis with aortic valve area 0.8 cm, peak/mean gradients 80 mmHg/43 mmHg 2. Coronary artery disease with previous 3 vessel CABG in 1989 with the SAENZ to the LAD and saphenous vein grafts to the RCA and the third obtuse marginal artery with subsequent placement of stent to the vein graft to the RCA x 2 3. Hypertension 4. Hyperlipidemia 5. Rdu-rbnpgye-yeyqrbqud diabetes mellitus 6. Left carotid stenosis status post endarterectomy in 2008 7. Previous heavy tobacco dependence Plan: The patient was seen and examined initially in the extended stay unit and subsequently on cardiac observation. Chart/diagnostics were reviewed. The case was discussed in detail with Dr. Rock will review the patient's heart catheterization and transesophageal echocardiogram films. TAVR was discussed with the patient as he is adamant that he does not want repeat open heart surgery. The patient is willing to consider TAVR, he prefers [facility] as that is where he had his first open heart surgery. Preoperative testing was initiated. Appointment was made to follow-up with Dr. Rock in the office next week to discuss TAVR further. All diagnostics will be sent to the structural heart clinic at [facility]. Patient was informed he will need dental clearance prior to procedure. All questions were answered. More recommendations to follow. Thank you Dr. Larson for this consult. We look forward to working with you in the care of your patient. Time with Patient: Greater than 30 <Earl Rock - Last Filed: 01/01/20 16:37> Surgical - Exam Vital Signs Temp Pulse Resp BP Pulse Ox 98.2 F 95 18 127/59 97 01/01/20 08:03 01/01/20 08:03 01/01/20 08:03 01/01/20 08:03 01/01/20 08:03 Results - Labs 01/01/20 07:45 01/01/20 07:45 Abnormal Lab Results - Last 24 Hours (Table) 01/01/20 01/01/20 01/01/20 Range/Units 07:45 07:45 07:58 WBC 13.6 H (3.8-10.6) k/uL Neutrophils # (Manual) 9.38 H (1.3-7.7) k/uL Glucose 165 H (74-99) mg/dL POC Glucose (mg/dL) 146 H (75-99) mg/dL Diabetes panel 01/01/20 Range/Units 07:45 Sodium 141 (137-145) mmol/L Potassium 4.7 (3.5-5.1) mmol/L Chloride 107 (98-107) mmol/L Carbon Dioxide 23 (22-30) mmol/L BUN 20 (9-20) mg/dL Creatinine 1.25 (0.66-1.25) mg/dL Glucose 165 H (74-99) mg/dL Calcium 9.3 (8.4-10.2) mg/dL Calcium panel 01/01/20 Range/Units 07:45 Calcium 9.3 (8.4-10.2) mg/dL Pituitary panel 01/01/20 Range/Units 07:45 Sodium 141 (137-145) mmol/L Potassium 4.7 (3.5-5.1) mmol/L Chloride 107 (98-107) mmol/L Carbon Dioxide 23 (22-30) mmol/L BUN 20 (9-20) mg/dL Creatinine 1.25 (0.66-1.25) mg/dL Glucose 165 H (74-99) mg/dL Calcium 9.3 (8.4-10.2) mg/dL Adrenal panel 01/01/20 Range/Units 07:45 Sodium 141 (137-145) mmol/L Potassium 4.7 (3.5-5.1) mmol/L Chloride 107 (98-107) mmol/L Carbon Dioxide 23 (22-30) mmol/L BUN 20 (9-20) mg/dL Creatinine 1.25 (0.66-1.25) mg/dL Glucose 165 H (74-99) mg/dL Calcium 9.3 (8.4-10.2) mg/dL Assessment and Plan Plan: The patient's films were reviewed with the nurse practitioner, he will follow up with me in the office next week for full TAVR consultation.
--- NOTE | 2020-01-01 16:38 | US ---
EXAMINATION TYPE: US carotid duplex BILAT DATE OF EXAM: 01/01/2020 COMPARISON: NONE CLINICAL HISTORY: preop TAVR. Prior left CEA EXAM MEASUREMENTS: RIGHT: Peak Systolic Velocity (PSV) cm/sec ----- Right CCA: 53.4 ----- Right ICA: 219.1 ----- Right ECA: 215.1 ICA/CCA ratio: 4.1 RIGHT: End Diastole cm/sec ----- Right CCA: 12.8 ----- Right ICA: 29.5 ----- Right ECA: 7.9 LEFT: Peak Systolic Velocity (PSV) cm/sec ----- Left CCA: 110.5 ----- Left ICA: 101.7 ----- Left ECA: 66.6 ICA/CCA ratio: 0.9 LEFT: End Diastole cm/sec ----- Left CCA: 8.6 ----- Left ICA: 13.7 ----- Left ECA: 0.0 VERTEBRALS (direction of flow): Right Vertebral: Antegrade Left Vertebral: Antegrade Rhythm: Arrhythmia Moderate, mixed wall plaque is seen in bilateral carotid systems with abnormally elevated PSV in Righ t ICA and Right ECA. Post left carotid endarterectomy echogenic wall changes are noted in left ICA. IMPRESSION: Previous left side carotid endarterectomy. There is antegrade flow in the vertebral michelle bj. Images and measurements suggest 50-70% stenosis in the right internal carotid artery. There is less than 50% stenosis in the left internal carotid artery. Criteria for Assigning % of Stenosis / Diameter reduction (Estimation based on the indirect measurements of the internal carotid artery velocities (ICA PSV). 1. Normal (no stenosis)=ICA PSV < 125 cm/s: ratio < 2.0: ICA EDV<40 cm/s. 2. Less than 50% stenosis=ICA PSV < 125 cm/s: ratio < 2.0: ICA EDV<40 cm/s. 3. 50 to 69% stenosis=ICA PSV of 125 to 230 cm/s: ration 2.0 ? 4.0: ICA EDV 40-100 cm/s. 4. Greater than 70% stenosis to near occlusion= ICA PSV > 230 cm/s: ratio > 4.0: ICA EDV > 100 cm/s. 5. Near occlusion= ICA PSV velocities may be low or undetectable: variable ratio and ICA EDV. 6. Total occlusion=unable to detect flow.
[2020-01-01 16:47] LABS: Appearance,Urine Clear (Clear); Bilirubin,Urine Negative (Negative); Blood,Urine Negative (Negative); Color,Urine Light Yellow; Glucose,Urine (UA) Negative (Negative); Ketones,Urine Negative (Negative); Leukocyte Esterase,Urine Negative (Negative); Nitrite,Urine Negative (Negative); PH, Urine 5.5 (5.0-8.0); Protein,Urine Negative (Negative); Specific Gravity,Urine 1.022 (1.001-1.035); Urobilinogen,Urine <2.0 mg/dL (<2.0)
[2020-01-01] MEDS ORDERED: ATORVASTATIN 80 MG TAB PO SCH (21:00)
[2020-01-01] MEDS ORDERED: METOPROLOL SUCCINATE (ER) 50 MG TAB.ER.24H PO SCH (21:00)
[2020-01-02] MEDS: NITROGLYCERIN SL TABS 0.4 MG TAB SUBLINGUAL PRN ×3 (03:20→03:30)
[2020-01-02] MEDS ORDERED: PANTOPRAZOLE 40 MG TABLET PO SCH (07:30)
[2020-01-02 07:39] LABS: HCT 44.6 % (39.0-53.0); HGB 13.9 gm/dL (13.0-17.5); MCH 27.7 pg (25.0-35.0); MCHC 31.1 g/dL (31.0-37.0); MCV 89.1 fL (80.0-100.0); Mean Platelet Volume 6.3; Platelet Count 302 k/uL (150-450); RBC 5.01 m/uL (4.30-5.90); RDW 14.7 % (11.5-15.5); WBC 14.6 k/uL (3.8-10.6)
[2020-01-02 07:46] LABS: Ionized Calcium 5.2 mg/dL (4.5-5.3)
[2020-01-02 07:52] LABS: Prothrombin Time 10.1 sec (9.0-12.0)
[2020-01-02 08:42] LABS: Albumin 3.6 g/dL (3.5-5.0); Calcium 9.1 mg/dL (8.4-10.2); Magnesium 1.7 mg/dL (1.6-2.3); Potassium 4.7 mmol/L (3.5-5.1); Total Bilirubin 0.9 mg/dL (0.2-1.3); Total Protein 6.7 g/dL (6.3-8.2)
[2020-01-02] MEDS ORDERED: EZETIMIBE 10 MG TAB PO SCH (09:00)
[2020-01-02] MEDS ORDERED: amLODIPine 10 MG TAB PO SCH (09:00)
[2020-01-02] MEDS ORDERED: ISOSORBIDE MONONITRATE ER 30 MG TAB.ER.24H PO SCH (09:00)
[2020-01-02] MEDS ORDERED: CLOPIDOGREL 75 MG TAB PO SCH (09:00)
[2020-01-02] MEDS ORDERED: ASPIRIN 81 MG PO SCH (09:00)
[2020-01-02] MEDS ORDERED: lisinopriL 20 MG TAB PO SCH (09:00)
[2020-01-02] MEDS ORDERED: CHOLECALCIFEROL 1,000 UNIT TAB PO SCH (09:00)
[2020-01-02 09:15] VITALS: BP 146/72; PULSE 85; RESP 20; TEMP 97.4
--- NOTE | 2020-01-02 09:31 | XR ---
EXAMINATION TYPE: XR chest 2V DATE OF EXAM: 01/02/2020 CLINICAL HISTORY: preop TAVR. TECHNIQUE: Frontal and lateral view of the chest. COMPARISON: None chest radiograph FINDINGS: Sternotomy wires. Cardiomegaly. Prominent interstitial lung markings. There is no focal ai r space opacity, pleural effusion, or pneumothorax seen. The osseous structures are intact. IMPRESSION: 1. Cardiomegaly. 2. Prominent interstitial lung markings may represent pulmonary vascular congestion versus edema.
[2020-01-02 11:46] LABS: Hepatitis A Antibody IgM Non-Reactive (Non-Reactive); Hepatitis B Core IgM Non-Reactive (Non-Reactive); Hepatitis B Surface Antigen Non-Reactive (Non-Reactive); Hepatitis C IgG Antibody Non-Reactive (Non-Reactive)
[2020-01-02 12:29] LABS: Eosinophils # (M) 1.02 k/uL (0-0.7); Lymphocytes # (M) 1.46 k/uL (1.0-4.8); Monocytes # (M) 1.75 k/uL (0-1.0); Neutrophils # (M) 10.37 k/uL (1.3-7.7); Neutrophils % (M) 71 %; Nucleated Red Blood Cells 0 /100 WBC (0-0); Total Cells Counted 100
[2020-01-02 16:07] LABS: Hemoglobin A1C 6.8 % (4.0-6.0)
--- NOTE | 2020-01-02 16:50 | P.DS ---
Providers Date of admission: 01/01/2020 Expected date of discharge: 01/02/20 Attending physician: Zina Larson Consults: 01/01/20 10:43 Consult Physician Routine Consulting Provider: [facility] Consult Reason/Comments: Post Interventional patient Do you want consulting provider notified?: Already Contacted Primary care physician: Ernesto Love - Discharge Diagnosis(es) (1) Aortic stenosis Status: Acute (2) Coronary artery disease Status: Acute (3) S/P CABG (coronary artery bypass graft) Status: Acute (4) S/P coronary artery stent placement Status: Acute (5) Diabetes mellitus Status: Acute Hospital Course: This patient was brought in for elective cardiac catheterization on the MARIA M examination for assessment of coronary artery disease and also aortic stenosis. Patient has been having exertional shortness of breath and gases feeling. MARIA M examination was consistent with severe aortic stenosis. Cardiac catheterization showed critical lesion involving the vein graft to the RCA just proximal to the previous stent placement. Patient had a repeat stent placement by Dr. Cloud. Patient was evaluated by Dr. Rock cardiac possible aortic valve replacement using TAVR approach. Patient to be evaluated and scheduled for the procedure as an outpatient. Patient remained stable overnight. No complaints of any chest pain or shortness of breath. His lungs are clear. Systolic murmur heard as before. Branches site in the groin is doing well without any hematoma. Patient is being discharged home. Follow-up in the office in one week Plan - Discharge Summary Discharge Rx Participant: No New Discharge Prescriptions: Continue Aspirin [Adult Low Dose Aspirin EC] 81 mg PO HS Multivitamins, Thera [Multivitamin (formulary)] 1 tab PO DAILY Cholecalciferol (Vitamin D3) [Vitamin D3] 2,000 unit PO DAILY Ferrous Sulfate [Iron (65 MG Elemental)] 325 mg PO DAILY Atorvastatin [Lipitor] 60 mg PO HS Metoprolol Succinate [Toprol XL] 50 mg PO HS Ezetimibe [Zetia] 10 mg PO DAILY Vitamin C Gummy 1 tab PO DAILY Benazepril HCl 20 mg PO DAILY Nitroglycerin Sl Tabs [Nitrostat] 0.4 mg SUBLINGUAL Q5M PRN #25 tab PRN Reason: Chest Pain sitaGLIPtin PHOS/metFORMIN HCL [Janumet Xr 50-500 mg Tablet] 1 each PO DAILY #0 Clopidogrel [Plavix] 75 mg PO DAILY Pantoprazole Sodium 40 mg PO DAILY Isosorbide Mononitrate [Isosorbide Mononitrate ER] 30 mg PO DAILY amLODIPine [Norvasc] 10 mg PO DAILY Discharge Medication List Aspirin [Adult Low Dose Aspirin EC] 81 mg PO HS 06/10/17 [History] Atorvastatin [Lipitor] 60 mg PO HS 06/10/17 [History] Cholecalciferol (Vitamin D3) [Vitamin D3] 2,000 unit PO DAILY 06/10/17 [History] Ezetimibe [Zetia] 10 mg PO DAILY 06/10/17 [History] Ferrous Sulfate [Iron (65 MG Elemental)] 325 mg PO DAILY 06/10/17 [History] Metoprolol Succinate [Toprol XL] 50 mg PO HS 06/10/17 [History] Multivitamins, Thera [Multivitamin (formulary)] 1 tab PO DAILY 06/10/17 [History] Vitamin C Gummy 1 tab PO DAILY 06/10/17 [History] Benazepril HCl 20 mg PO DAILY 07/24/18 [History] Nitroglycerin Sl Tabs [Nitrostat] 0.4 mg SUBLINGUAL Q5M PRN #25 tab 08/06/18 [Rx] sitaGLIPtin PHOS/metFORMIN HCL [Janumet Xr 50-500 mg Tablet] 1 each PO DAILY #0 08/06/18 [Rx] Clopidogrel [Plavix] 75 mg PO DAILY 07/02/19 [History] Pantoprazole Sodium 40 mg PO DAILY 07/02/19 [History] Isosorbide Mononitrate [Isosorbide Mononitrate ER] 30 mg PO DAILY 01/01/20 [History] amLODIPine [Norvasc] 10 mg PO DAILY 01/01/20 [History] Follow up Appointment(s)/Referral(s): Earl Rock MD [STAFF PHYSICIAN] - 01/07/20 2:00 pm Zina Larson MD [STAFF PHYSICIAN] - 1 Week (APPOINTMENT MADE ON December @ 1:45PM ) Patient Instructions/Handouts: *[facility] - After Heart Catheterization - Sustainability Project Coordinator Instructions, Aortic Stenosis (DC), Cardiac Rehabilitation (ED), Coronary Intravascular Stent Placement (DC), Transcatheter Aortic Valve Replacement (DC), Procedural Sedation (ED) Activity/Diet/Wound Care/Special Instructions: *NO LIFTING, PUSHING, OR PULLING ANYTHING OVER 10 POUNDS FOR 5 DAYS *NO DRIVING FOR 3 DAYS *YOU CAN SHOWER TOMORROW BUT DO NOT SUBMERSE YOUR PUNCTURE SITE IN WATER FOR A FEW DAYS TO PREVENT INFECTION - SO NO TUB BATHS, POOLS, HOT TUBS, DISHES....ETC. *ANY SIGNS OF BLEEDING (HARDNESS, SWELLING, OR EXCESSIVE BRUISING) HOLD DIRECT PRESSURE ON YOUR PUNCTURE SITE AND COME TO THE NEAREST EMERGENCY ROOM TO GET YOUR PUNCTURE SITE LOOKED AT - DO NOT DRIVE YOURSELF! EITHER CALL EMS OR HAVE SOMEONE DRIVE YOU Discharge Disposition: HOME SELF-CARE
--- NOTE | 2020-01-08 13:19 | CONS ---
CONSULTATION DATE OF CONSULTATION: 01/01/20 I have seen, examined and agree with the midlevel's findings. MMODL / IJN: [id number] / Job#: [id number]
== END 2020-01-02 09:50 | disposition home or self-care (01) ==
LOC: CATHCVL 07:37 → 3NCARDOBS 10:32 → CATHCVL 01-02 09:50
PROVIDERS: ATTEND Internal Medicine Cardiovascular Disease
DX: T82.858A Stenosis of other vascular prosthetic devices, implants and grafts, initial encounter (principal); I25.10 Atherosclerotic heart disease of native coronary artery without angina pectoris; I35.0 Nonrheumatic aortic (valve) stenosis; I25.82 Chronic total occlusion of coronary artery; I10 Essential (primary) hypertension; E78.5 Hyperlipidemia, unspecified; E11.9 Type 2 diabetes mellitus without complications; I65.22 Occlusion and stenosis of left carotid artery; I25.9 Chronic ischemic heart disease, unspecified; H91.90 Unspecified hearing loss, unspecified ear; Z95.1 Presence of aortocoronary bypass graft; Z95.5 Presence of coronary angioplasty implant and graft; Z87.891 Personal history of nicotine dependence; Z79.82 Long term (current) use of aspirin; Z79.899 Other long term (current) drug therapy; Z79.84 Long term (current) use of oral hypoglycemic drugs; Z79.02 Long term (current) use of antithrombotics/antiplatelets; Z98.890 Other specified postprocedural states; Z80.9 Family history of malignant neoplasm, unspecified; Z97.2 Presence of dental prosthetic device (complete) (partial)
CPT/HCPCS: 94150; 93312; 93320; 93325; 93454; 85347; 80053; 80048; 80074; 84443; 82330; 83735; 85025 ×2; 85610; 81003; 87070; 83036; 71046; 93880; C9604; C1769 ×4; C1760; C1887; C1725; C1894; C1874; J2250; J2001; J3010; J0583; Q9967

== ENCOUNTER 2020-03-11 08:54 | Emergency (ER) | payer MEDICARE ==
[2020-03-11 09:05] VITALS: BP 137/64; PULSE 71; RESP 18; TEMP 98
--- NOTE | 2020-03-11 09:37 | ED ---
General Adult HPI - General Chief complaint: Urogenital Stated complaint: Catheter Issue/Removal Time Seen by Provider: 03/11/20 09:07 Source: patient, RN notes reviewed Mode of arrival: ambulatory Limitations: no limitations - History of Present Illness Initial comments: 80-year-old male presents emergency Department with chief complaint of wanting Ritchie catheter out. Patient states that he had a Ritchie catheter placed over a week ago as he cannot urinate post surgical. Patient states that they attempted to remove it was unable to go. Patient states he is scheduled for follow-up next week states that he does not want this and anymore. Patient states that tolerated. Patient states that he had pain before but states that has all resolved. No fevers chills. No other complaints. - Related Data Home Medications Medication Instructions Recorded Confirmed Aspirin [Adult Low Dose Aspirin EC] 81 mg PO HS 06/10/17 01/01/20 Atorvastatin [Lipitor] 60 mg PO HS 06/10/17 01/01/20 Cholecalciferol (Vitamin D3) 2,000 unit PO DAILY 06/10/17 01/01/20 [Vitamin D3] Ezetimibe [Zetia] 10 mg PO DAILY 06/10/17 01/01/20 Ferrous Sulfate [Iron (65 MG 325 mg PO DAILY 06/10/17 01/01/20 Elemental)] Metoprolol Succinate [Toprol XL] 50 mg PO HS 06/10/17 01/01/20 Multivitamins, Thera [Multivitamin 1 tab PO DAILY 06/10/17 01/01/20 (formulary)] Vitamin C Gummy 1 tab PO DAILY 06/10/17 01/01/20 Benazepril HCl 20 mg PO DAILY 07/24/18 01/01/20 Clopidogrel [Plavix] 75 mg PO DAILY 07/02/19 01/01/20 Pantoprazole Sodium 40 mg PO DAILY 07/02/19 01/01/20 Isosorbide Mononitrate [Isosorbide 30 mg PO DAILY 01/01/20 01/01/20 Mononitrate ER] amLODIPine [Norvasc] 10 mg PO DAILY 01/01/20 01/01/20 Previous Rx's Medication Instructions Recorded Nitroglycerin Sl Tabs [Nitrostat] 0.4 mg SUBLINGUAL Q5M PRN #25 tab 08/06/18 sitaGLIPtin PHOS/metFORMIN HCL 1 each PO DAILY #0 08/06/18 [Janumet Xr 50-500 mg Tablet] Allergies Allergy/AdvReac Type Severity Reaction Status Date / Time No Known Allergies Allergy Verified 03/11/20 09:05 Review of Systems ROS Statement: Those systems with pertinent positive or pertinent negative responses have been documented in the HPI. ROS Other: All systems not noted in ROS Statement are negative. Past Medical History Past Medical History: Coronary Artery Disease (CAD), Diabetes Mellitus, Hearing Disorder / Deafness, Hyperlipidemia, Hypertension Additional Past Medical History / Comment(s): SOB w/exertion, "LEAKY HEART VALVE." History of Any Multi-Drug Resistant Organisms: None Reported Past Surgical History: Coronary Bypass/CABG, Heart Catheterization With Stent Additional Past Surgical History / Comment(s): CABG 1989 (SAENZ to the LAD, vein graft to the RCA, vein graft to the third obtuse marginal). LT CAROTID ARTERY endarterectomy 2008. PTCA W/ 2 STENTS. 08/05/18 stent RCA, 07/03/19 stent to RCA graft, 01/01/2020 stent to the RCA graft, heart valve replacement 03/03/20 Past Anesthesia/Blood Transfusion Reactions: No Reported Reaction Date of Last Stent Placement:: 01/01/20 Past Psychological History: No Psychological Hx Reported Smoking Status: Former smoker Past Alcohol Use History: Occasional Past Drug Use History: None Reported - Past Family History Mother Family Medical History: Cancer General Exam Limitations: no limitations General appearance: alert, in no apparent distress Head exam: Present: atraumatic, normocephalic, normal inspection Eye exam: Present: normal appearance, PERRL, EOMI. Absent: scleral icterus, conjunctival injection, periorbital swelling Respiratory exam: Present: normal lung sounds bilaterally. Absent: respiratory distress, wheezes, rales, rhonchi, stridor Cardiovascular Exam: Present: regular rate, normal rhythm, normal heart sounds. Absent: systolic murmur, diastolic murmur, rubs, gallop, clicks GI/Abdominal exam: Present: soft, normal bowel sounds. Absent: distended, tenderness, guarding, rebound, rigid Course Vital Signs 03/11/20 09:00 Temperature 98 F Pulse Rate 71 Respiratory 18 Rate Blood Pressure 137/64 O2 Sat by Pulse 98 Oximetry Medical Decision Making - Medical Decision Making I did warn patient's if the catheter out that he may not able to urinate he may need to return for catheter placement. I did recommend to be catheter in place until he follows up patient refuses understands risk, family member in the room. Disposition Clinical Impression: Urinary retention, Encounter for Ritchie catheter removal Disposition: HOME SELF-CARE Condition: Stable Instructions (If sedation given, give patient instructions): Urinary Retention in Men (ED) Additional Instructions: Please return to the emergency Department if you're unable to urinate.Please return to the Emergency Department if symptoms worsen or any other concerns. Is patient prescribed a controlled substance at d/c from ED?: No Referrals: Bi Love MD [Primary Care Provider] - 1-2 days Time of Disposition: 09:37
== END 2020-03-11 09:45 | disposition home or self-care (01) ==
LOC: EC 08:54
DX: Z46.6 Encounter for fitting and adjustment of urinary device (principal); R39.9 Unspecified symptoms and signs involving the genitourinary system; I25.10 Atherosclerotic heart disease of native coronary artery without angina pectoris; E78.5 Hyperlipidemia, unspecified; I10 Essential (primary) hypertension; Z79.02 Long term (current) use of antithrombotics/antiplatelets; Z79.82 Long term (current) use of aspirin; Z79.899 Other long term (current) drug therapy; Z87.891 Personal history of nicotine dependence; Z95.5 Presence of coronary angioplasty implant and graft; Z95.1 Presence of aortocoronary bypass graft; Z95.2 Presence of prosthetic heart valve
CPT/HCPCS: 99283

== ENCOUNTER 2020-09-15 11:35 | Inpatient (IN) | payer MEDICARE ==
[2020-09-15] MEDS ORDERED: MAG HYDROX/AL HYDROX/SIMETH 30 ML, HYOSCYAMINE ELIXIR 10 ML PO STA ×2 (11:59)
[2020-09-15] MEDS ORDERED: PANTOPRAZOLE 40 MG/10 ML VIAL IVP STA (11:59)
--- NOTE | 2020-09-15 12:18 | ED ---
General Adult HPI - General Chief complaint: Chest Pain Stated complaint: Chest Pain Time Seen by Provider: 09/15/20 11:43 Source: patient, RN notes reviewed Mode of arrival: ambulatory Limitations: no limitations - History of Present Illness Initial comments: This is an 80-year-old male presents emergency from chief complaint of epigastric discomfort and arm pain Patient states been having issues with reflux, pain in this region. Patient admits to started after he started taking a large amount pomegranate. Patient states he is having pain daily has to take nitro and alleviate his symptoms. Patient is on current Protonix. Patient states he has seen his bonding machine tender, PCP for this reason. Patient was referred to GI . He does admit that he occasionally gets some arm pain which she takes nitro IV he did update his bonding machine tender regarding this. Patient is scheduled see GI next month. Patient denies any current shortness breath patient had aortic valve replacement in February. Patient states he has mild epigastric discomfort. He states he ended presented today because his PCP told him if he was taking nitro and Pepto-Bismol that he should go to the emergency department. - Related Data Home Medications Medication Instructions Recorded Confirmed Aspirin [Adult Low Dose Aspirin EC] 81 mg PO DAILY 06/10/17 09/15/20 Cholecalciferol (Vitamin D3) 50 mcg PO DAILY 06/10/17 09/15/20 [Vitamin D3] Ezetimibe [Zetia] 10 mg PO DAILY 06/10/17 09/15/20 Ferrous Sulfate [Iron (65 MG 325 mg PO DAILY 06/10/17 09/15/20 Elemental)] Metoprolol Succinate [Toprol XL] 50 mg PO DAILY@1600 06/10/17 09/15/20 Multivitamins, Thera [Multivitamin 1 tab PO DAILY 06/10/17 09/15/20 (formulary)] Benazepril HCl 20 mg PO DAILY@1600 07/24/18 09/15/20 Clopidogrel [Plavix] 75 mg PO DAILY@1600 07/02/19 09/15/20 Pantoprazole Sodium 40 mg PO DAILY 07/02/19 09/15/20 Isosorbide Mononitrate [Isosorbide 30 mg PO DAILY@1600 01/01/20 09/15/20 Mononitrate ER] amLODIPine [Norvasc] 10 mg PO DAILY@1600 01/01/20 09/15/20 Amoxicillin 2,000 mg PO ONCE PRN 09/15/20 09/15/20 Ascorbic Acid [Vitamin C] 500 mg PO DAILY 09/15/20 09/15/20 Atorvastatin [Lipitor] 60 mg PO DAILY@1600 09/15/20 09/15/20 Dextran 70/Hypromellose [Genteal 1 drop BOTH EYES QID PRN 09/15/20 09/15/20 Tears 0.1%-0.3% Drop] Nitroglycerin Sl Tabs [Nitrostat] 0.4 mg SL Q5M PRN 09/15/20 09/15/20 sitaGLIPtin PHOS/metFORMIN HCL 1 tab PO DAILY 09/15/20 09/15/20 [Janumet 50-500 mg Tablet] Allergies Allergy/AdvReac Type Severity Reaction Status Date / Time No Known Allergies Allergy Verified 09/15/20 14:21 Review of Systems ROS Statement: Those systems with pertinent positive or pertinent negative responses have been documented in the HPI. ROS Other: All systems not noted in ROS Statement are negative. Past Medical History Past Medical History: Coronary Artery Disease (CAD), Diabetes Mellitus, Hearing Disorder / Deafness, Hyperlipidemia, Hypertension Additional Past Medical History / Comment(s): SOB w/exertion, "LEAKY HEART VALVE." History of Any Multi-Drug Resistant Organisms: None Reported Past Surgical History: Coronary Bypass/CABG, Heart Catheterization With Stent Additional Past Surgical History / Comment(s): CABG 1989 (SAENZ to the LAD, vein graft to the RCA, vein graft to the third obtuse marginal). LT CAROTID ARTERY endarterectomy 2008. PTCA W/ 2 STENTS. 08/05/18 stent RCA, 07/03/19 stent to RCA graft, 01/01/2020 stent to the RCA graft, heart valve replacement 03/03/20 Past Anesthesia/Blood Transfusion Reactions: No Reported Reaction Date of Last Stent Placement:: 01/01/20 Past Psychological History: No Psychological Hx Reported Smoking Status: Former smoker Past Alcohol Use History: Occasional Past Drug Use History: None Reported - Past Family History Mother Family Medical History: Cancer General Exam Limitations: no limitations General appearance: alert, in no apparent distress Head exam: Present: atraumatic, normocephalic, normal inspection Eye exam: Present: normal appearance, PERRL, EOMI. Absent: scleral icterus, conjunctival injection, periorbital swelling ENT exam: Present: normal exam, normal oropharynx, mucous membranes moist Neck exam: Present: normal inspection, full ROM. Absent: tenderness, meningismus, lymphadenopathy Respiratory exam: Present: normal lung sounds bilaterally. Absent: respiratory distress, wheezes, rales, rhonchi, stridor Cardiovascular Exam: Present: regular rate, normal rhythm, normal heart sounds. Absent: systolic murmur, diastolic murmur, rubs, gallop, clicks GI/Abdominal exam: Present: soft, tenderness (Epigastric), normal bowel sounds. Absent: distended, guarding, rebound, rigid Back exam: Absent: CVA tenderness (R), CVA tenderness (L) Neurological exam: Present: alert Skin exam: Present: warm, dry, intact, normal color. Absent: rash Course Vital Signs 09/15/20 11:37 Temperature 98.4 F Pulse Rate 74 Respiratory 18 Rate Blood Pressure 185/73 O2 Sat by Pulse 98 Oximetry Medical Decision Making - Medical Decision Making 80-year-old male presented to the emergency Department for epigastric, arm pain. Patient had recurrent symptoms in which she's taken nitro to alleviate the pain almost daily. Patient will be admitted for cardiac rule out, possible GI evaluation. - Lab Data Result diagrams: 09/15/20 12:04 09/15/20 12:04 Lab Results 09/15/20 09/15/20 09/15/20 Range/Units 12:04 12:04 12:04 WBC 12.5 H (3.8-10.6) k/uL RBC 5.06 (4.30-5.90) m/uL Hgb 14.2 (13.0-17.5) gm/dL Hct 43.1 (39.0-53.0) % MCV 85.2 (80.0-100.0) fL MCH 28.1 (25.0-35.0) pg MCHC 33.0 (31.0-37.0) g/dL RDW 15.6 H (11.5-15.5) % Plt Count 313 (150-450) k/uL MPV 6.9 PT 10.3 (9.0-12.0) sec INR 1.0 (<1.2) APTT 22.3 (22.0-30.0) sec Sodium 138 (137-145) mmol/L Potassium 4.6 (3.5-5.1) mmol/L Chloride 109 H (98-107) mmol/L Carbon Dioxide 20 L (22-30) mmol/L Anion Gap 9 mmol/L BUN 18 (9-20) mg/dL Creatinine 1.03 (0.66-1.25) mg/dL Est GFR (CKD-EPI)AfAm 79 (>60 ml/min/1.73 sqM) Est GFR (CKD-EPI)NonAf 68 (>60 ml/min/1.73 sqM) Glucose 119 H (74-99) mg/dL Calcium 9.8 (8.4-10.2) mg/dL Magnesium 1.9 (1.6-2.3) mg/dL Total Bilirubin 0.6 (0.2-1.3) mg/dL AST 25 (17-59) U/L ALT 21 (4-49) U/L Alkaline Phosphatase 115 (38-126) U/L Troponin I (0.000-0.034) ng/mL Total Protein 7.3 (6.3-8.2) g/dL Albumin 4.1 (3.5-5.0) g/dL Lipase 187 (23-300) U/L 09/15/20 Range/Units 12:04 WBC (3.8-10.6) k/uL RBC (4.30-5.90) m/uL Hgb (13.0-17.5) gm/dL Hct (39.0-53.0) % MCV (80.0-100.0) fL MCH (25.0-35.0) pg MCHC (31.0-37.0) g/dL RDW (11.5-15.5) % Plt Count (150-450) k/uL MPV PT (9.0-12.0) sec INR (<1.2) APTT (22.0-30.0) sec Sodium (137-145) mmol/L Potassium (3.5-5.1) mmol/L Chloride (98-107) mmol/L Carbon Dioxide (22-30) mmol/L Anion Gap mmol/L BUN (9-20) mg/dL Creatinine (0.66-1.25) mg/dL Est GFR (CKD-EPI)AfAm (>60 ml/min/1.73 sqM) Est GFR (CKD-EPI)NonAf (>60 ml/min/1.73 sqM) Glucose (74-99) mg/dL Calcium (8.4-10.2) mg/dL Magnesium (1.6-2.3) mg/dL Total Bilirubin (0.2-1.3) mg/dL AST (17-59) U/L ALT (4-49) U/L Alkaline Phosphatase (38-126) U/L Troponin I 0.032 (0.000-0.034) ng/mL Total Protein (6.3-8.2) g/dL Albumin (3.5-5.0) g/dL Lipase (23-300) U/L Disposition Clinical Impression: Coronary artery disease, Chest pain, Epigastric pain Disposition: ADMITTED IP TO THIS [facility] Condition: Fair Referrals: Bi Love MD [Primary Care Provider] - 1-2 days
[2020-09-15 12:22] LABS: HCT 43.1 % (39.0-53.0); HGB 14.2 gm/dL (13.0-17.5); MCH 28.1 pg (25.0-35.0); MCV 85.2 fL (80.0-100.0); Mean Platelet Volume 6.9; Platelet Count 313 k/uL (150-450); RBC 5.06 m/uL (4.30-5.90); RDW 15.6 % (11.5-15.5); WBC 12.5 k/uL (3.8-10.6)
[2020-09-15 12:30] LABS: Partial Thromboplastin Time 22.3 sec (22.0-30.0); Prothrombin Time 10.3 sec (9.0-12.0)
--- NOTE | 2020-09-15 12:39 | XR ---
EXAMINATION TYPE: XR chest 2V DATE OF EXAM: 09/15/2020 COMPARISON: Chest x-ray 01/02/2020 HISTORY: Chest pain, shortness of breath TECHNIQUE: Frontal and lateral views of the chest are obtained. FINDINGS: Patient is post median sternotomy and rotated. There are overlying leads. Biapical pleural thickening is stable. There is no evident pneumothorax or pleural effusion. Cardiac mediastinal silh ouette isn't significantly changed. There is improvement in lung volume. Patient is status post TAVR procedure. Prominent lung volume with flattening the hemidiaphragms may be indicative of underlying C OPD. There are coronary artery calcifications. Thoracic spondylosis is noted. IMPRESSION: No acute cardiopulmonary process. Postop findings. Coronary artery disease.
[2020-09-15 12:44] LABS: Albumin 4.1 g/dL (3.5-5.0); Calcium 9.8 mg/dL (8.4-10.2); Magnesium 1.9 mg/dL (1.6-2.3); Potassium 4.6 mmol/L (3.5-5.1); Total Bilirubin 0.6 mg/dL (0.2-1.3); Total Protein 7.3 g/dL (6.3-8.2)
[2020-09-15] MEDS ORDERED: NITROGLYCERIN SL TABS 0.4 MG TAB SUBLINGUAL PRN (14:37)
[2020-09-15 15:29] LABS: Eosinophils # (M) 1.13 k/uL (0-0.7); Lymphocytes # (M) 1.63 k/uL (1.0-4.8); Monocytes # (M) 0.88 k/uL (0-1.0); Neutrophils # (M) 8.88 k/uL (1.3-7.7); Neutrophils % (M) 71 %; Nucleated Red Blood Cells 0 /100 WBC (0-0); Total Cells Counted 100
[2020-09-15] MEDS ORDERED: NALOXONE 0.4 MG/ML 1 ML VIAL IV PRN (16:10)
[2020-09-15] MEDS ORDERED: ONDANSETRON 4 MG/2 ML VIAL IVP PRN (16:10)
[2020-09-15] MEDS ORDERED: MELATONIN 3 MG TABLET PO PRN (16:10)
[2020-09-15] MEDS ORDERED: oxyCODONE-APAP 5-325MG 1 EACH TAB PO PRN (16:10)
[2020-09-15] MEDS ORDERED: MAG HYDROX/AL HYDROX/SIMETH 30 ML CUP PO PRN (16:10)
[2020-09-15] MEDS ORDERED: ACETAMINOPHEN TAB 325 MG TAB PO PRN (16:10)
[2020-09-15] MEDS ORDERED: ARTIFICIAL TEARS-HYPROMELLOSE DROPS 15 ML BTL BOTH EYES PRN (16:13)
--- NOTE | 2020-09-15 16:13 | P.HPIM ---
History of Present Illness H&P Date: 09/15/20 History of Presenting Illness: Patient is a very pleasant 80-year-old male with a past medical history of CAD with CABG followed by stenting, recent TAVR on 03/03/20 at [facility], hypertension, hyperlipidemia, chronic anemia, and type II [id number] diabetes mellitus. Patient presented to the emergency department with a chief complaint of epigastric bloating and discomfort and bilat arm pain. Patient reports these symptoms have been accompanied by acid reflux and constipation. Patient reports this episode began approximately 5-6 days ago in which he started experiencing abdominal bloating, uncontrolled belching and flatulence, gastric reflex, constipation, and pain in bilateral arms. Patient reports he has tried a combination of medications to assist including an icqv-zle-arjxoof medication called Peptiva, pomegranate, Pepto-Bismol, nitro, and laxatives. Patient states that he was taking laxatives daily 3 days until he had a bowel movement. Patient reports he had a couple days where he was having normal bowel function but reports he has returned to being constipated with last bowel movement being yesterday morning. Patient reports significant abdominal bloating and discomfort and states that he talk to his PCP, Dr. Love, and told him he took some Pepto-Bismol and a nitroglycerin tablet and his doctor advised him to go straight to the ER for evaluation. In the emergency department patient was seen and fully evaluated. Chest x-ray completed negative for acute cardiopulmonary process, revealing coronary artery calcifications along with prominent lung volume with flattening of the hemidiaphragms possibly indicated of underlying COPD. EKG showing normal sinus rhythm at 66 bpm with a left bundle branch block with T-wave inversion in lateral and inferior leads unchanged from previous EKG obtained on 01/01/20. Labs reviewed: CMP showing no significant abnormalities. Initial troponin of 0.032 with repeat troponin flat at 0.039. CBC revealing mild leukocytosis with a left shift with a WBC count of 12.5 and neutrophils of 8.88. Coagulation profile normal findings. Patient started on heparin per ACS protocol. Patient admitted under our services with consultation to cardiology. Upon assessment, patient very tender to palpation epigastric and left upper quadrant. Abdomen was soft and distended. Patient denied having any recent known fevers, chills, diaphoresis, headache, lightheadedness, dizziness, chest pain or palpitations, shortness of breath or dyspnea with exertion, nausea, vomiting, hematemesis, melena, hematochezia, experiencing any difficulties with or changes in his urinary function, or having any noted numbness/weakness/swelling in his extremities. Patient reports he follows outpatient with his caul puller Dr. Marion. Review of systems: Pertinent positives and negatives as discussed in HPI, a complete review of systems was performed and all other systems are negative. Physical exam: Vital signs reviewed and stable. General: Nontoxic, no distress and appears stated age. Derm: Skin warm and dry, normal coloration for ethnicity. Head: Atraumatic, normocephalic and symmetric. Eyes: EOMs intact, no lid lag, and anicteric sclera Mouth: no lip lesions, mucus membranes moist Cardiovascular: regular rate and rhythm with normal S1S2, no murmur, positive p osterior tibial pulses bilaterally, and cap refill < 2 seconds. Lungs: Respirations even, regular, and unlabored on room air. Lungs CTA bilaterally, no rhonchi, no rales, no wheezing, and no accessory muscle usage. Abdominal: obese abdomen, soft distended, tenderness to palpation to left upper quadrant and epigastric region, no guarding, no appreciable organomegaly Ext: ROM intact. No gross muscle atrophy, no edema, no contractures Neuro: Speech clear, face symmetrical and CN II-XII grossly intact with no noted focal neuro deficits Psych: Alert and oriented to person, place, time, and situation. Appropriate and pleasant affect. Assessment and Plan of Care: Epigastric pain, rule out acute coronary event versus intra-abdominal process Bilateral arm pain Abdominal bloating with constipation -EKG showing normal sinus rhythm at 66 bpm with a left bundle branch block with T-wave inversion in lateral and inferior leads unchanged from previous EKG obtained on 01/01/20. -Initial troponin of 0.032 with repeat troponin flat at 0.039. -CMP showing no significant abnormalities with normal liver and pancreatic enzymes. -CBC revealing mild leukocytosis with a left shift with a WBC count of 12.5 and neutrophils of 8.88. -Coagulation profile normal findings. -Patient started on heparin per ACS protocol until acute coronary event can't be ruled out. -Cardiology consulted -Telemetry monitoring -Patient given aspirin 1 dose and to continue with daily aspirin, Plavix, atorvastatin, Zetia, Imdur, lisinopril, and metoprolol. -Nitro when necessary for chest pain -GI prophylaxis with Protonix -CT abdomen and pelvis without contrast CAD with CABG followed by stenting and recent TAVR on 03/03/20 -EKG showing normal sinus rhythm at 66 bpm with a left bundle branch block with T-wave inversion in lateral and inferior leads unchanged from previous EKG obtained on 01/01/20. -Initial troponin of 0.032 with repeat troponin flat at 0.039. -Patient started on heparin per ACS protocol until acute coronary event can't be ruled out. -Cardiology consulted -Telemetry monitoring -Patient given aspirin 1 dose and to continue with daily aspirin, Plavix, atorvastatin, Zetia, Imdur, lisinopril, and metoprolol. -Nitro when necessary for chest pain Hypertension -Monitor vital signs and continue daily medication regimen with Imdur, lisinopril, metoprolol.. Hyperlipidemia -Continue daily medication regimen with atorvastatin and Zetia Type II [id number] diabetes mellitus -Hold oral glycemic medication in place patient on glycemic protocol with NovoLog sliding scale. The patient is admitted with an anticipated greater than 2 midnight stay for evaluation of epigastric pain CODE STATUS: Full code DVT prophylaxis: Heparin Discussed with: Patient and RN Anticipated discharge date: Clinical course to determine Anticipated discharge place: Home A total of 45 minutes was spent on the care of this complex patient more than 50% of the time was spent in counseling and care coordination. Past Medical History Past Medical History: Coronary Artery Disease (CAD), Diabetes Mellitus, Hearing Disorder / Deafness, Hyperlipidemia, Hypertension Additional Past Medical History / Comment(s): SOB w/exertion, "LEAKY HEART VALVE." History of Any Multi-Drug Resistant Organisms: None Reported Past Surgical History: Coronary Bypass/CABG, Heart Catheterization With Stent Additional Past Surgical History / Comment(s): CABG 1989 (SAENZ to the LAD, vein graft to the RCA, vein graft to the third obtuse marginal). LT CAROTID ARTERY endarterectomy 2008. PTCA W/ 2 STENTS. 08/05/18 stent RCA, 07/03/19 stent to RCA graft, 01/01/2020 stent to the RCA graft, heart valve replacement 03/03/20 Past Anesthesia/Blood Transfusion Reactions: No Reported Reaction Date of Last Stent Placement:: 01/01/20 Past Psychological History: No Psychological Hx Reported Smoking Status: Former smoker Past Alcohol Use History: Occasional Past Drug Use History: None Reported - Past Family History Mother Family Medical History: Cancer Medications and Allergies Home Medications Medication Instructions Recorded Confirmed Type Aspirin [Adult Low Dose Aspirin EC] 81 mg PO DAILY 06/10/17 09/15/20 History Cholecalciferol (Vitamin D3) 50 mcg PO DAILY 06/10/17 09/15/20 History [Vitamin D3] Ezetimibe [Zetia] 10 mg PO DAILY 06/10/17 09/15/20 History Ferrous Sulfate [Iron (65 MG 325 mg PO DAILY 06/10/17 09/15/20 History Elemental)] Metoprolol Succinate [Toprol XL] 50 mg PO DAILY@1600 06/10/17 09/15/20 History Multivitamins, Thera [Multivitamin 1 tab PO DAILY 06/10/17 09/15/20 History (formulary)] Benazepril HCl 20 mg PO DAILY@1600 07/24/18 09/15/20 History Clopidogrel [Plavix] 75 mg PO DAILY@1600 07/02/19 09/15/20 History Pantoprazole Sodium 40 mg PO DAILY 07/02/19 09/15/20 History Isosorbide Mononitrate [Isosorbide 30 mg PO DAILY@1600 01/01/20 09/15/20 History Mononitrate ER] amLODIPine [Norvasc] 10 mg PO DAILY@1600 01/01/20 09/15/20 History Amoxicillin 2,000 mg PO ONCE PRN 09/15/20 09/15/20 History Ascorbic Acid [Vitamin C] 500 mg PO DAILY 09/15/20 09/15/20 History Atorvastatin [Lipitor] 60 mg PO DAILY@1600 09/15/20 09/15/20 History Dextran 70/Hypromellose [Genteal 1 drop BOTH EYES QID PRN 09/15/20 09/15/20 History Tears 0.1%-0.3% Drop] Nitroglycerin Sl Tabs [Nitrostat] 0.4 mg SL Q5M PRN 09/15/20 09/15/20 History sitaGLIPtin PHOS/metFORMIN HCL 1 tab PO DAILY 09/15/20 09/15/20 History [Janumet 50-500 mg Tablet] Allergies Allergy/AdvReac Type Severity Reaction Status Date / Time No Known Allergies Allergy Verified 09/15/20 14:21 Physical Exam Vitals: Vital Signs Temp Pulse Resp BP Pulse Ox 09/15/20 11:37 98.4 F 74 18 185/73 98 Intake and Output 09/15/20 09/15/20 09/15/20 06:59 14:59 22:59 Other: Weight 90.718 kg Results CBC & Chem 7: 09/15/20 12:04 09/15/20 12:04 Labs: Abnormal Lab Results - Last 24 Hours (Table) 09/15/20 09/15/20 Range/Units 12:04 12:04 WBC 12.5 H (3.8-10.6) k/uL RDW 15.6 H (11.5-15.5) % Neutrophils # (Manual) 8.88 H (1.3-7.7) k/uL Eosinophils # (Manual) 1.13 H (0-0.7) k/uL Chloride 109 H (98-107) mmol/L Carbon Dioxide 20 L (22-30) mmol/L Glucose 119 H (74-99) mg/dL
[2020-09-15] MEDS ORDERED: HEPARIN SODIUM 1,000 UN/ML (10ML VL) IV PRN (16:28)
[2020-09-15] MEDS ORDERED: HEPARIN SODIUM 1,000 UN/ML (10ML VL) IV ONE (16:28)
[2020-09-15] MEDS ORDERED: HEPARIN SOD,PORK IN 0.45% NACL 25,000 UNIT in 0.45% NACL 1 250ML.BAG IV SCH (17:00)
[2020-09-15 17:39] LABS: Glucose,Whole Blood 119 mg/dL (75-99)
--- NOTE | 2020-09-15 19:48 | CONS ---
CONSULTATION CHIEF COMPLAINT: Chest pain. Mr. Cross is an 80-year-old gentleman with history of coronary artery disease status post CABG status post angioplasty of venous graft to the right coronary artery in November of last year, hypertension, diabetes, and dyslipidemia who presented to hospital with progressively worsening discomfort involving both upper extremities for the last 2 weeks. The patient states that he also had epigastric discomfort and some shortness of breath with activity. He recently underwent a stress test in our office. We do not have the results at this time. The patient states that his pain responds to sublingual nitroglycerin. EKG shows sinus rhythm with left bundle branch block. Troponin has come back elevated at 0.039. The 2nd set. The first set was normal. The patient's clinical presentation is consistent with acute non ST-segment elevation [place]. We are treating him with aspirin nitrates, beta blockers and intravenous heparin. I advised him to undergo cardiac catheterization for further evaluation. I am going to review his stress test results tomorrow and make a final decision based on how his symptoms evolve, the cardiac enzymes change and what happens to his stress test. PAST MEDICAL HISTORY: Significant for coronary artery disease status post CABG status post recent angioplasty, hypertension, diabetes, dyslipidemia. I reviewed recent angiographic data. MEDICATIONS: Medications at home included metformin, Norvasc, Nitrostat, Toprol-XL, iron, Zetia, Plavix, Lipitor, aspirin and Amoxicillin. ALLERGIES: No known drug allergies. FAMILY HISTORY: Negative for premature coronary artery disease. SOCIAL HISTORY: Negative for current smoking, EtOH abuse, or drug abuse. REVIEW OF SYSTEMS: HEENT is unremarkable. CARDIAC as described above. RESPIRATORY negative. GI negative. : Negative. ALLERGY/IMMUNOLOGY: Negative. SKIN negative. MUSCULOSKELETAL negative. ENDOCRINE negative. HEMATOLOGICAL negative. DERM: Negative. CONSTITUTIONAL: Negative. ONCOLOGICAL: Negative. RUG SHAMPOOER negative. Rest of the system review is not relevant. EXAM: Comfortable at rest, afebrile. Heart rate is 76 beats a minute. Blood pressure is 134/64, respiratory rate is 16, O2 saturation is 99% on room air. There is no jugular venous distention. Carotid upstroke is normal. There is no bruit. CHEST exam reveals good air entry bilaterally. HEART exam reveals first and second heart sounds. No gallop. Has an ejection systolic murmur in the aortic area. ABDOMEN is soft. Examination of the EXTREMITIES reveals mild edema. Peripheral pulses are felt. LABS: As described above. EKG is as described above. ASSESSMENT: Acute non ST-segment elevation myocardial infarction in a patient with known coronary artery disease status post CABG status post recent angioplasty of venous graft to the right coronary artery. PLAN: I am going to review outpatient stress test, treat the patient with aggressive medical therapy, obtain a 2D echo and consider cardiac catheterization tomorrow if he is agreeable to it. MMLIA / HANNAN: [id number] /
--- NOTE | 2020-09-15 19:59 | CT ---
EXAMINATION TYPE: CT abdomen pelvis wo con DATE OF EXAM: 09/15/2020 HISTORY: EPIGASTRIC PAIN TECHNIQUE: Departmental protocol. Automated exposure control for dose reduction was used. CT DLP: 1139 mGycm COMPARISON: 09/09/2018 FINDINGS: LUNG BASES: No acute process. LIVER/GB: No significant abnormality is appreciated. PANCREAS: No significant abnormality is seen. SPLEEN: No significant abnormality is seen. ADRENALS: No significant abnormality is seen. KIDNEYS: No significant abnormality is seen. PERITONEAL CAVITY: No pneumoperitoneum or peritoneal fluid. REPRODUCTIVE ORGANS: No significant abnormality is seen URINARY BLADDER: No significant abnormality is seen. PELVIC ADENOPATHY: None visualized. OSSEOUS STRUCTURES: No significant abnormality is seen. BOWEL: No significant abnormality is seen. IMPRESSION: No acute CT process.
[2020-09-15 20:03] LABS: Glucose,Whole Blood 153 mg/dL (75-99)
[2020-09-15] MEDS: ISOSORBIDE MONONITRATE ER 60 MG TAB.ER.24H PO SCH (20:07)
[2020-09-16 07:06] LABS: African American GFR (CKD) 71 (>60 ml/min/1.73 sqM); Anion Gap 8 mmol/L; Blood Urea Nitrogen 16 mg/dL (9-20); Carbon Dioxide 23 mmol/L (22-30); Chloride 108 mmol/L (98-107); Glucose 147 mg/dL (74-99); Non-African American GFR(CKD) 62 (>60 ml/min/1.73 sqM); Potassium 4.3 mmol/L (3.5-5.1); Sodium 139 mmol/L (137-145)
[2020-09-16 07:08] LABS: Calcium 9.4 mg/dL (8.4-10.2); Magnesium 1.9 mg/dL (1.6-2.3)
[2020-09-16 07:15] LABS: Prothrombin Time 10.6 sec (9.0-12.0)
[2020-09-16 07:17] LABS: Glucose,Whole Blood 117 mg/dL (75-99)
[2020-09-16] MEDS: INSULIN ASPART (NovoLOG) 100 UNIT/ML VIAL SQ SCH ×3 (07:22→18:03)
[2020-09-16] MEDS ORDERED: ASPIRIN 325 MG TAB PO SCH (09:00)
[2020-09-16] MEDS ORDERED: ASPIRIN 81 MG PO SCH (09:00)
[2020-09-16] MEDS ORDERED: ALPRAZolam 0.25 MG TAB PO PRN (09:19)
[2020-09-16] MEDS ORDERED: SODIUM CHLORIDE 0.9% 1,000 ML in EMPTY BAG 1 BAG IV ONE (09:19)
[2020-09-16] MEDS ORDERED: ALPRAZolam 0.5 MG TAB PO PRN (09:19)
[2020-09-16] MEDS: ASCORBIC ACID 500 MG TAB PO SCH (09:19)
[2020-09-16] MEDS: PANTOPRAZOLE 40 MG TABLET PO SCH (09:20)
[2020-09-16] MEDS: CHOLECALCIFEROL 25 MCG (1000 IU) TABLET PO SCH (09:20)
[2020-09-16] MEDS: EZETIMIBE 10 MG TAB PO SCH (09:20)
[2020-09-16] MEDS: CLOPIDOGREL 75 MG TAB PO SCH ×2 (09:20→12:56)
[2020-09-16 09:46] LABS: Basophils % (A) 0.9 %; Eosinophils # (A) 0.82 X 10*3/uL (0.04-0.35); Eosinophils % (A) 7.8 %; HCT 42.2 % (39.6-50.0); HGB 13.4 g/dL (13.0-17.0); Lymphocytes # (A) 1.78 X 10*3/uL (0.90-5.00); Lymphocytes % (A) 16.8 %; MCH 27.4 pg (27.0-32.0); MCHC 31.8 g/dL (32.0-37.0); MCV 86.3 fL (80.0-97.0); Monocytes # (A) 1.19 X 10*3/uL (0.20-1.00); Monocytes % (A) 11.2 %; Neutrophils # (A) 6.63 X 10*3/uL (1.80-7.70); Neutrophils % (A) 62.7 %; Platelet Count 251 X 10*3/uL (140-440); RBC 4.89 X 10*6/uL (4.40-5.60); RDW 16.4 % (11.5-14.5); WBC 10.58 X 10*3/uL (4.50-10.00)
[2020-09-16] MEDS ORDERED: LIDOCAINE 1% INJ 10MG/ML (20 ML MDV) ONE (10:17)
[2020-09-16] MEDS ORDERED: IV FLUID CONTINUATION 1,000 ML IV ONE (10:32)
[2020-09-16] MEDS ORDERED: fentaNYL (PF) 50 MCG/ML 2 ML AMP ONE (10:41)
[2020-09-16] MEDS ORDERED: CLOPIDOGREL 75 MG TAB PO ONE (10:44)
[2020-09-16] MEDS ORDERED: fentaNYL (PF) 50 MCG/ML 2 ML AMP IV ONE (11:09)
[2020-09-16] MEDS ORDERED: LIDOCAINE 1% INJ 10MG/ML (20 ML MDV) SQ ONE (11:14)
[2020-09-16] MEDS ORDERED: HEPARIN SODIUM 1,000 UN/ML (10ML VL) ONE (11:25)
[2020-09-16] MEDS ORDERED: IOPAMIDOL-370 125ML BTL INJ ONE (11:42)
[2020-09-16] MEDS ORDERED: NITROGLYCERIN 1000MCG/10ML SYRINGE INTRACORON ONE (11:52)
[2020-09-16] MEDS ORDERED: IOPAMIDOL-370 100ML BTL INJ ONE ×2 (12:06→12:24)
[2020-09-16] MEDS ORDERED: MAG HYDROX/AL HYDROX/SIMETH 30 ML CUP PO PRN (12:45)
[2020-09-16] MEDS ORDERED: ATROPINE SULFATE 0.1 MG/ML 10ML SYRINGE IV PRN (12:45)
[2020-09-16] MEDS ORDERED: RX INFO: IV CONTRAST WAS GIVEN 1 EACH MISC MISCELLANE PRN (12:45)
[2020-09-16] MEDS ORDERED: ZOLPIDEM 5 MG TAB PO PRN (12:45)
[2020-09-16] MEDS ORDERED: SODIUM CHLORIDE 0.9% 1,000 ML IV SCH (12:45)
[2020-09-16] MEDS ORDERED: NITROGLYCERIN SL TABS 0.4 MG TAB SUBLINGUAL PRN (12:45)
--- NOTE | 2020-09-16 14:04 | P.PN ---
Subjective HISTORY OF PRESENTING ILLNESS This is a pleasant 80-year-old male past medical history significant for coronary artery disease status post CABG in 1989 and PCI most recent 12/2019, hyperlipidemia, hypertension, type 2 diabetes, aortic stenosis s/p TAVR 02/2020, peripheral vascular disease. He follows in the office with Dr. Larson. We have been asked to see in consultation for NSTEMI. Patient admitted to the hospital on 09/15/2020 with progressively worsening discomfort involving the both upper extremities for the last 2 weeks. He also had epigastric discomfort and some shortness of breath with activity. Nitro relieved his pain. He recently underwent Lexiscan Cardiolite stress test on 09/02/2020 which revealed abnormal perfusion study with mild to moderate partially reversible defect on the inferolateral segment suggestive of previous myocardial infarction with kamille- infarct ischemia. Troponin trend includes 0.032, 0.039, 0.038.EKG reveals sinus rhythm with left bundle branch block, heart rate 66.Most recent cardiac catheterization was 12/2019 patient was found to have significant stenosis in his SVG to RCA proximal to the stented segment. Patient subsequently went stenting with Dr. Cloud. Most recent echocardiogram 11/2019 revealed an EF of 46%, critical aortic stenosis with a mean gradient of 42 mmHg mildly increased pulmonary artery systolic pressure. Patient seen and examined at bedside, no acute distress. Overnight patient continues to go in and out of atrial fibrillation with controlled ventricular rates. This morning he is maintaining sinus mechanism on exam. Blood pressure 140/73, heart rate 71, afebrile, maintaining oxygen saturations on room air. Laboratory data reviewed WBC 10.5, hemoglobin 13.4, platelets 251, sodium 139, potassium 4.3, BUN 16, serum creatinine 1.1, magnesium 1.9. Patient currently maintained on amlodipine 10 mg daily, atorvastatin 60 mg daily, Plavix 75 mg daily, study at 10 mg daily, Imdur 60 mg daily, lisinopril 20 mg daily, metoprolol succinate 50 mg daily PHYSICAL EXAMINATION Blood pressure 122/66 heart rate 66 afebrile and maintaining oxygen saturation 95% on room air GENERAL: Well-appearing, well-nourished and in no acute distress. NECK: Supple without JVD or thyromegaly. LUNGS: Breath sounds clear to auscultation bilaterally. Respiration equal and unlabored. No wheezes, rales or rhonchi. HEART: Regular rate and rhythm S1 and S2 heard. Systolic ejection murmur right sternal border EXTREMITIES: Normal range of motion. mild bilateral edema. No clubbing or cyanosis. Peripheral pulses intact. ASSESSMENT NSTEMI New onset Paroxysmal atrial fibrillation CHADS2 score- 6 Coronary artery disease status post CABG in 1989 and PCI most recent 12/2019 Hyperlipidemia Hypertension Type 2 diabetes Severe aortic stenosis s/p TAVR 02/2020 Peripheral vascular disease. PLAN -2D echocardiogram ordered -We recommend cardiac catheterization at this time. I have discussed the risks, benefits and alternative therapies for the above-mentioned procedure and for both sedation/analgesia as well as necessary blood product administration, if indicated, as they pertain to this patient. The patient has indicated understanding and acceptance of the risks and procedures discussed. Questions have been answered appropriately and he is agreeable to move forward with the above-stated procedure. -Plan for cardiac catheterization with Dr. Cloud today -Start Xarelto 20mg daily -Case management was consulted for anticoagulation coverage. Patient is only able to get a free month of Xarelto and subsequent prescriptions for Xarelto have to go through the [facility]. Will send a prescription for a month to pharmacy. -Discontinue aspirin. Continue all other cardiac medications. -Further recommendations based on clinical course Nurse Practitioner note has been reviewed, I agree with a documented findings and plan of care. Patient was seen and examined. Objective - Vital Signs Vital signs: Vital Signs Temp 97.5 F L 09/16/20 07:00 Pulse 71 09/16/20 07:00 Resp 18 09/16/20 08:00 BP 148/73 09/16/20 07:00 Pulse Ox 97 09/16/20 07:00 Intake & Output 09/15/20 09/16/20 09/16/20 18:59 06:59 18:59 Intake Total 420.667 92.667 Balance 420.667 92.667 Weight 90.718 kg Intake: Intake, IV Titration 70.667 92.667 Amount Heparin Sod,Pork in 0.45% 70.667 92.667 NaCl 25,000 unit In 0.45 % NaCl 1 250ml.bag @ 11. 023 UNITS/KG/HR 10 mls/hr IV .Q24H [facility] Rx#: [id number] Oral 350 Other: Voiding Method Toilet Toilet Toilet # Voids 2 - Labs CBC & Chem 7: 09/16/20 06:14 09/16/20 06:14 Labs: Abnormal Lab Results - Last 24 Hours (Table) 09/15/20 09/15/20 09/15/20 Range/Units 12:04 12:04 15:04 WBC 12.5 H (3.8-10.6) k/uL MCHC (32.0-37.0) g/dL RDW 15.6 H (11.5-15.5) % MPV (9.5-12.2) fL Immature Gran # (0.00-0.04) X 10*3/uL Neutrophils # (Manual) 8.88 H (1.3-7.7) k/uL Monocytes # (0.20-1.00) X 10*3/uL Eosinophils # (0.04-0.35) X 10*3/uL Eosinophils # (Manual) 1.13 H (0-0.7) k/uL APTT (22.0-30.0) sec Chloride 109 H (98-107) mmol/L Carbon Dioxide 20 L (22-30) mmol/L Glucose 119 H (74-99) mg/dL POC Glucose (mg/dL) (75-99) mg/dL Troponin I 0.039 H* (0.000-0.034) ng/mL 09/15/20 09/15/20 09/15/20 Range/Units 17:38 19:23 20:02 WBC (3.8-10.6) k/uL MCHC (32.0-37.0) g/dL RDW (11.5-15.5) % MPV (9.5-12.2) fL Immature Gran # (0.00-0.04) X 10*3/uL Neutrophils # (Manual) (1.3-7.7) k/uL Monocytes # (0.20-1.00) X 10*3/uL Eosinophils # (0.04-0.35) X 10*3/uL Eosinophils # (Manual) (0-0.7) k/uL APTT (22.0-30.0) sec Chloride (98-107) mmol/L Carbon Dioxide (22-30) mmol/L Glucose (74-99) mg/dL POC Glucose (mg/dL) 119 H 153 H (75-99) mg/dL Troponin I 0.038 H* (0.000-0.034) ng/mL 09/15/20 09/16/20 09/16/20 Range/Units 22:54 06:14 06:14 WBC 10.58 H (3.8-10.6) k/uL MCHC 31.8 L (32.0-37.0) g/dL RDW 16.4 H (11.5-15.5) % MPV 9.0 L (9.5-12.2) fL Immature Gran # 0.06 H (0.00-0.04) X 10*3/uL Neutrophils # (Manual) (1.3-7.7) k/uL Monocytes # 1.19 H (0.20-1.00) X 10*3/uL Eosinophils # 0.82 H (0.04-0.35) X 10*3/uL Eosinophils # (Manual) (0-0.7) k/uL APTT 61.0 H (22.0-30.0) sec Chloride 108 H (98-107) mmol/L Carbon Dioxide (22-30) mmol/L Glucose 147 H (74-99) mg/dL POC Glucose (mg/dL) (75-99) mg/dL Troponin I (0.000-0.034) ng/mL 09/16/20 09/16/20 Range/Units 06:14 07:16 WBC (3.8-10.6) k/uL MCHC (32.0-37.0) g/dL RDW (11.5-15.5) % MPV (9.5-12.2) fL Immature Gran # (0.00-0.04) X 10*3/uL Neutrophils # (Manual) (1.3-7.7) k/uL Monocytes # (0.20-1.00) X 10*3/uL Eosinophils # (0.04-0.35) X 10*3/uL Eosinophils # (Manual) (0-0.7) k/uL APTT 43.0 H (22.0-30.0) sec Chloride (98-107) mmol/L Carbon Dioxide (22-30) mmol/L Glucose (74-99) mg/dL POC Glucose (mg/dL) 117 H (75-99) mg/dL Troponin I (0.000-0.034) ng/mL
[2020-09-16] MEDS: MULTIVITAMINS, THERA 1 EACH TAB PO SCH (15:20)
[2020-09-16] MEDS: FERROUS SULFATE 325 MG TAB PO SCH (15:20)
[2020-09-16] MEDS: ISOSORBIDE MONONITRATE ER 60 MG TAB.ER.24H PO SCH (15:20)
[2020-09-16 15:21] VITALS: BMI 31.3
--- NOTE | 2020-09-16 15:21 | P.PN ---
Subjective Progress Note Date: 09/16/20 Patient is an 80-year-old male for history of coronary artery disease status post CABG requiring stenting after CABG, recent TAVR on 03/03/20 at [facility], hypertension, dyslipidemia, type 2 diabetes, and ultimately her comorbid conditions who presented to the ER with complaints of chest pain. Initial EKG showed sinus rhythm at 66 with a left bundle branch block and T-wave inversion not significantly changed from prior EKG. Initial troponin was 0.032 with slight escalation to 0.039 but remained flat. He is admitted for further monitoring secondary to concerns for unstable angina. He was seen by cardiology who recommended cardiac catheterization which was completed on 09/16 with stenting of SVG to RCA graft. Patient seen and examined at bedside prior to heart cath. He was chest pain- free, no nausea, no vomiting no numbness or tingling. He does report some belching and bloating for several days with a history of gastric reflux. We did discuss that if his heart Were negative we should pursue workup for gastritis/GERD General: no distress, appears at stated age Derm: warm, dry Head: atraumatic, normocephalic, symmetric Eyes: EOMI, no lid lag, anicteric sclera Mouth: no lip lesion, mucus membranes moist Cardiovascular: S1S2 irreg, no murmur, positive posterior tibial pulse bilateral, Lungs: CTA bilateral, no rhonchi, no rales , no accessory muscle use Abdominal: soft, nontender to palpation, no guarding, no appreciable organomegaly Ext: no gross muscle atrophy, no edema, no contractures Neuro: CN II-XI grossly intact, no focal neuro deficits Psych: Alert, oriented, appropriate affect Unstable angina, coronary artery disease History of CABG History of recent TAVR -Status post PCI, awaitng report per nursing stent in [facility] to RCA bypass - ASA, plavix, lipitor, imdur - Cardio recs appreciated Paroxsymal A fib, newly discovered - Rate controlled -Continue with anticoagulation -Continue with beta shameka Leukocytosis - likely reactive - no signs/symptoms of infection - repeat in AM Hypertension -Monitor vital signs and continue daily medication regimen with Imdur, lisinop ril, metoprolol.. Hyperlipidemia -Continue daily medication regimen with atorvastatin and Zetia Type II zin-tcxzmte-mvtlllsxa diabetes mellitus -Hold oral glycemic medication -SSI - Follow blood sugars Objective - Vital Signs Vital signs: Vital Signs Temp 98.3 F 09/16/20 14:54 Pulse 65 09/16/20 14:54 Resp 18 09/16/20 14:54 BP 135/65 09/16/20 14:54 Pulse Ox 96 09/16/20 14:54 Intake & Output 09/15/20 09/16/20 09/16/20 18:59 06:59 18:59 Intake Total 420.667 542.667 Output Total 300 Balance 420.667 242.667 Weight 90.718 kg Intake: IV 450 Intake, IV Titration 70.667 92.667 Amount Heparin Sod,Pork in 0.45% 70.667 92.667 NaCl 25,000 unit In 0.45 % NaCl 1 250ml.bag @ 11. 023 UNITS/KG/HR 10 mls/hr IV .Q24H [facility] Rx#: [id number] Oral 350 Output: Urine 300 Other: Voiding Method Toilet Toilet Toilet # Voids 2 1 - Labs CBC & Chem 7: 09/16/20 06:14 09/16/20 06:14 Labs: Abnormal Lab Results - Last 24 Hours (Table) 09/15/20 09/15/20 09/15/20 Range/Units 12:04 15:04 17:38 WBC (4.50-10.00) X 10*3/uL MCHC (32.0-37.0) g/dL RDW (11.5-14.5) % MPV (9.5-12.2) fL Immature Gran # (0.00-0.04) X 10*3/uL Neutrophils # (Manual) 8.88 H (1.3-7.7) k/uL Monocytes # (0.20-1.00) X 10*3/uL Eosinophils # (0.04-0.35) X 10*3/uL Eosinophils # (Manual) 1.13 H (0-0.7) k/uL APTT (22.0-30.0) sec Chloride (98-107) mmol/L Glucose (74-99) mg/dL POC Glucose (mg/dL) 119 H (75-99) mg/dL Troponin I 0.039 H* (0.000-0.034) ng/mL 09/15/20 09/15/20 09/15/20 Range/Units 19:23 20:02 22:54 WBC (4.50-10.00) X 10*3/uL MCHC (32.0-37.0) g/dL RDW (11.5-14.5) % MPV (9.5-12.2) fL Immature Gran # (0.00-0.04) X 10*3/uL Neutrophils # (Manual) (1.3-7.7) k/uL Monocytes # (0.20-1.00) X 10*3/uL Eosinophils # (0.04-0.35) X 10*3/uL Eosinophils # (Manual) (0-0.7) k/uL APTT 61.0 H (22.0-30.0) sec Chloride (98-107) mmol/L Glucose (74-99) mg/dL POC Glucose (mg/dL) 153 H (75-99) mg/dL Troponin I 0.038 H* (0.000-0.034) ng/mL 09/16/20 09/16/20 09/16/20 Range/Units 06:14 06:14 06:14 WBC 10.58 H (4.50-10.00) X 10*3/uL MCHC 31.8 L (32.0-37.0) g/dL RDW 16.4 H (11.5-14.5) % MPV 9.0 L (9.5-12.2) fL Immature Gran # 0.06 H (0.00-0.04) X 10*3/uL Neutrophils # (Manual) (1.3-7.7) k/uL Monocytes # 1.19 H (0.20-1.00) X 10*3/uL Eosinophils # 0.82 H (0.04-0.35) X 10*3/uL Eosinophils # (Manual) (0-0.7) k/uL APTT 43.0 H (22.0-30.0) sec Chloride 108 H (98-107) mmol/L Glucose 147 H (74-99) mg/dL POC Glucose (mg/dL) (75-99) mg/dL Troponin I (0.000-0.034) ng/mL 09/16/20 Range/Units 07:16 WBC (4.50-10.00) X 10*3/uL MCHC (32.0-37.0) g/dL RDW (11.5-14.5) % MPV (9.5-12.2) fL Immature Gran # (0.00-0.04) X 10*3/uL Neutrophils # (Manual) (1.3-7.7) k/uL Monocytes # (0.20-1.00) X 10*3/uL Eosinophils # (0.04-0.35) X 10*3/uL Eosinophils # (Manual) (0-0.7) k/uL APTT (22.0-30.0) sec Chloride (98-107) mmol/L Glucose (74-99) mg/dL POC Glucose (mg/dL) 117 H (75-99) mg/dL Troponin I (0.000-0.034) ng/mL
[2020-09-16] MEDS ORDERED: ISOSORBIDE MONONITRATE ER 30 MG TAB.ER.24H PO SCH (16:00)
[2020-09-16] MEDS ORDERED: amLODIPine 10 MG TAB PO SCH (16:00)
[2020-09-16] MEDS ORDERED: lisinopriL 20 MG TAB PO SCH (16:00)
[2020-09-16] MEDS ORDERED: ATORVASTATIN 20 MG TAB PO SCH (16:00)
[2020-09-16] MEDS ORDERED: METOPROLOL SUCCINATE (ER) 50 MG TAB.ER.24H PO SCH (16:00)
[2020-09-16] MEDS ORDERED: RIVAROXABAN 20 MG TAB PO SCH (17:30)
--- NOTE | 2020-09-16 17:36 | ECHOF ---
Referral Reason:mi MEASUREMENTS -------- HEIGHT: 170.2 cm WEIGHT: 90.7 kg BP: 106/46 RVIDd: 4.3 cm (< 3.3) IVSd: 1.1 cm (0.6 - 1.1) LVIDd: 5.0 cm (3.9 - 5.3) LVPWd: 1.1 cm (0.6 - 1.1) IVSs: 1.4 cm LVIDs: 4.0 cm LVPWs: 1.5 cm LAESV Index (A-L): 42.65 ml/m Ao Diam: 2.0 cm (2.0 - 3.7) AV Cusp: 0.9 cm (1.5 - 2.6) MV EXCURSION: 16.144 mm (> 18.000) MV EF SLOPE: 124 mm/s (70 - 150) EPSS: 1.2 cm MV E Jayson: 0.86 m/s MV DecT: 279 ms MV A Jayson: 0.83 m/s MV E/A Ratio: 1.04 AV maxP.79 mmHg AV meanP.76 mmHg AR PHT: 502 ms RAP: 5.00 mmHg RVSP: 22.91 mmHg FINDINGS -------- This was a technically difficult study with suboptimal apical views. Patient is post cardiac catheterization and cannot be in left lateral position. The left ventricular size is normal. There is borderline concentric left ventricular hypertrophy. Overall left ventricular systolic function is moderately impaired with, an EF between 35 - 40 %. S eptal wall motion is delayed and consistent with prior cardiac surgery. Apical septum LV wall motio n is hypokinetic. The right ventricle is moderately enlarged. LA is moderately dilated 34-39 ml/m2 The right atrium was not well visualized. 5.0mg of Lumason was utilized for enhancement of images Interatrial and interventricular septum intact. There is mild aortic regurgitation. Peak/mean gradient across the Aortic Valve is 28.79mmHg / 11.76 mmHg. S\P TAVR FEB 2020 Mild mitral annular calcification present. Moderate mitral regurgitation is present. Mild tricuspid regurgitation present. There is no evidence of pulmonary hypertension. The right v entricular systolic pressure, as measured by Doppler, is 22.91mmHg. There is no pulmonic regurgitation present. The aortic root size is normal. IVC Not well visulized. There is no pericardial effusion. CONCLUSIONS -------- 1. The left ventricular size is normal. 2. There is borderline concentric left ventricular hypertrophy. 3. Overall left ventricular systolic function is moderately impaired with, an EF between 35 - 40 %. 4. Apical septum LV wall motion is hypokinetic. 5. The right ventricle is moderately enlarged. 6. LA is moderately dilated 34-39 ml/m2 7. There is mild aortic regurgitation. 8. Peak/mean gradient across the Aortic Valve is 28.79mmHg / 11.76mmHg. 9. Mild mitral annular calcification present. 10. Moderate mitral regurgitation is present. 11. Mild tricuspid regurgitation present. WEATHERIZATION DIRECTOR: Franchesca Byers RDCS
--- NOTE | 2020-09-16 18:09 | PTCA ---
PERCUTANEOUSTRANS CORORONARY ANGIOGRAPHY Mr. Cross is an 80-year-old male with known history of coronary artery disease who presented with symptoms of chest discomfort and evidence of non STEMI. Underwent cardiac catheterization and was found to have critical stenosis involving the body of the saphenous vein graft to the right coronary artery as well as the distal anastomotic site. In view of that, recommendation was made regarding angioplasty and stenting. The procedure as well as the risks and the complications were discussed with the patient who is in full understanding and agreement. PROCEDURE: A 6-Maori FR4 guiding catheter introduced in the system. After cannulating the proximal anastomotic site, a 0.014 balanced medium weight J-wire was advanced in the graft and placed in the mid segment. Subsequently, another 0.014 balanced medium J- wire with a microcatheter were introduced and the wire was advanced into the PDA. Subsequently, the microcatheter was removed and a 2.5 x 12 mm NC Trek balloon was advanced and inflations were done at maximum of 12 atmospheres. Following that, the balloon was removed and a 3.0 x 28 mm Xience Sue stent was deployed and post dilated to 16 atmospheres. Following that the balloon was removed and a 2.75 x 18 mm Xience Sue stent was advanced and deployed distal to the first stent and post dilated at 16 atmospheres. Following that the balloon was removed and a 3.0 x 28 mm Xience Sue stent was deployed proximal to the first stent and post dilated at 16 atmospheres. Following that, a 3.25 x 15 mm NC Trek balloon was advanced and multiple inflations to maximum of 14 atmospheres were done. Following that the balloon was removed and a 3.5 x 15 mm NC Trek balloon was advanced and multiple inflations to maximum of 14 atmospheres were done. After the last inflation, after appropriate wait, the balloon and the guidewire were withdrawn back in the guiding catheter. Images were obtained and repeated. Those images reveal stable successful stenting. At that point, the guiding catheter, the balloon and the guidewire were removed. The sheath was removed. Hemostasis was obtained with deployment of an Angio-Seal. There was no immediate complication. The patient was returned to his room in stable condition. Of note, the patient received a total of 9000 units of intravenous heparin, he was continued on clopidogrel. His ACT was monitored. He had chest pain and EKG changes with the inflation that improved at the end of the procedure. RESULTS: Successful stenting of the saphenous vein graft to the right coronary artery with reduction of stenosis from 99% to less than 5%. RECOMMENDATION: Patient will be continued on aspirin, Plavix and statin. The importance of dual antiplatelet treatment were discussed with the patient and his family who are in full understanding and agreement. Duration of sedation is 75 minutes. MMLIA / HANNAN: [id number] /
--- NOTE | 2020-09-16 18:13 | CC ---
CARDIAC CATHETERIZATION REPORT Mr. Cross is an 80-year-old male with known history of coronary artery disease, status post coronary bypass grafting 30 years ago, multiple percutaneous revascularization, most recently in November of 2019, status post TAVR in February of this year, who presented with symptoms of chest discomfort and mild troponin elevation, consistent with non STEMI. Recommendation made regarding cardiac catheterization. The procedure as well as the risks and the complications were discussed with the patient who is in full understanding and agreement. 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 Using Xylocaine anesthesia, Seldinger technique a 6-Afghan sheath was introduced in the right femoral artery. Selective right and left coronary angiography performed using 6-Afghan 4 bend right and left Natalia catheter. Multiple views taken artery including hemiaxial views obtained. The right coronary artery was not cannulated since it was known to be chronically occluded. Subsequently, the right Natalia catheter was used to cannulate the saphenous vein graft to the right coronary artery and SAENZ to the LAD and images of the grafts were obtained. Following that, catheter removed, images were reviewed. FINDINGS: FLUOROSCOPY: There was calcification involving the coronary arteries. 1. LEFT MAIN: This is a large-sized vessel, bifurcating into left circumflex. 2. LEFT ANTERIOR DESCENDING ARTERY: Left main coronary artery has mild disease distally with no significant plaque. 3. LEFT ( ) ARTERY: This vessel appears to be totally occluded proximal with no significant antegrade flow. 4. LEFT CIRCUMFLEX: This vessel gives rise to a proximal obtuse marginal branch that could be in the ramus intermedius territory. There are 3 branches, the AV groove, left circumflex is totally occluded with no significant ( )flow and there is a delayed filling of what appears to be a 4th obtuse marginal branch. 5. RIGHT CORONARY ARTERY: Images of the right coronary artery were not performed. That is known to be chronically occluded. 6. SAPHENOUS VEIN GRAFT TO THE RIGHT CORONARY ARTERY: The proximal and distal anastomotic sites are patent. The stented segment, the proximal graft is patent. There is an 80% plaque in the mid segment of the body of the graft. There is another 99% stenosis in the distal segment, and a 99% stenosis at the distal anastomotic site. The flow into the PDA is a noted. There is diffuse disease in that asa'[place] vessel. 7. SAENZ to LAD: The distal anastomotic site is patent. The flow into the SAENZ is brisk. LEFT VENTRICULOGRAM: Left ventriculogram was not performed. CONCLUSION: 1. Severe triple-vessel coronary artery disease with chronic occluded LAD and right coronary artery and AV groove of the left circumflex. 2. Significant disease in the body of the saphenous vein graft to the RCA, as well as the distal anastomotic site. 3. Patent SAENZ to LAD. RECOMMENDATION: In view of finding anatomy, I recommend proceeding with angioplasty and stenting of the saphenous vein graft to the right coronary artery. The procedure as well as the risks and the complications were discussed with the patient, who is in full understanding and agreement. MMODL / IJN: [id number] / MTDD
--- NOTE | 2020-09-16 19:36 | CONS ---
CONSULTATION DATE OF SERVICE: 09/16/2020 REASON FOR CONSULTATION: Epigastric pain. HISTORY OF PRESENT ILLNESS: The patient is an 80-year-old pleasant white male with history of coronary artery disease status post coronary artery bypass grafting in the past, history of aortic stenosis status post TAVR in February of this year, presents to the hospital with chest pain and epigastric discomfort as well as shortness of breath. Subsequently, he was diagnosed with non ST-segment elevated [place] and he underwent cardiac catheterization with 3 stents placement this morning. We were consulted for chronic intermittent epigastric pain on and off for the last several months duration. Since his TAVR surgery in February of this year he has been having some epigastric discomfort but he denies any heartburn. Reports no nausea, no vomiting. When he presented to the hospital with severe chest pain and chest pressure, he also had worsening epigastric discomfort too. Following cardiac catheterization with stent placement this afternoon he is feeling much better and the epigastric pain has resolved. He reports no prior history of peptic ulcer disease or recent NSAID use. PAST MEDICAL HISTORY: Significant for coronary artery disease status post CABG many years ago, history of hypertension, hyperlipidemia, diabetes mellitus, hypercholesteremia. MEDICATIONS: Medications at home include metformin, Norvasc, Nitrostat, Toprol, iron, Zetia, Plavix, Lipitor, aspirin, amoxicillin. ALLERGIES: None. SOCIAL HISTORY: No smoking, no alcohol use. FAMILY HISTORY: Unremarkable. REVIEW OF SYSTEMS: CARDIOPULMONARY: He did have some shortness of breath but currently it is resolved. He did have some chest pain that has resolved after the cardiac cath. GI: As mentioned above. HEMATOLOGY: Unremarkable. PSYCHIATRIC: Unremarkable. ENT/VISION: Unremarkable. CONSTITUTIONAL: No recent weight loss. No fever, chills, night sweats. ENDOCRINE: History of diabetes mellitus. PHYSICAL EXAMINATION: He appears comfortable. No apparent distress. VITAL SIGNS: Stable. Blood pressure is 135/65, pulse rate 65, temperature 98.3. HEENT examination unremarkable. Conjunctivae pink, sclerae anicteric. Oral cavity no lesions. NECK: No JVD or lymph node enlargement. CHEST: Clear to auscultation. HEART: Regular rate and rhythm. ABDOMEN: Soft, bowel sounds are positive. EXTREMITIES: No pedal edema. NEURO: He is alert and oriented x3. No focal deficits. LABS: Done today WBC 10.8, hemoglobin 13, platelets normal. Basic metabolic panel is within normal limits. IMPRESSION: 1. Non ST-segment elevated [place], status post cardiac catheterization with CAD with stents placed this morning, presently on aspirin and Plavix. 2. Epigastric pain on and off for the last 6 months duration. The patient may have a component of gastroesophageal reflux disease. Since being in the hospital he is on Protonix 40 mg daily and his symptoms have significantly improved. In fact, currently he does not have any associated abdominal pain. 3. History of atrial fibrillation, on Xarelto. 4. History of diabetes mellitus. 5. History of hypertension. 6. History of hypercholesteremia. RECOMMENDATIONS: 1. Continue with Protonix 40 mg daily. 2. Briefly educated about diet modification and anti-reflux measures. 3. No need for any endoscopic intervention at the present time. 4. Continue with current medical management. 5. Patient advised to follow up in the office in 3-4 weeks following discharge from the hospital. Thank you for this consultation. MMLIA / HANNAN: [id number] /
[2020-09-16 19:42] LABS: Chol/HDL Ratio 7.24; Cholesterol 152 mg/dL (0-200); LDL Cholesterol,Calculated 80.8 mg/dL (0.0-131.0)
[2020-09-16] MEDS ORDERED: APIXABAN 5 MG TAB PO SCH ×2 (21:00)
[2020-09-17 03:46] VITALS: TEMP 97.9
[2020-09-17 06:25] LABS: HCT 38.4 % (39.0-53.0); HGB 12.5 gm/dL (13.0-17.5); MCH 28.1 pg (25.0-35.0); MCHC 32.6 g/dL (31.0-37.0); MCV 86.2 fL (80.0-100.0); Platelet Count 244 k/uL (150-450); RBC 4.45 m/uL (4.30-5.90); RDW 15.8 % (11.5-15.5); WBC 10.6 k/uL (3.8-10.6)
[2020-09-17] MEDS ORDERED: HEPARIN SODIUM,PORCINE 2,500 UNIT in SODIUM CHLORIDE 0.9% 250 ML IRRIGATION PRN (07:00)
[2020-09-17] MEDS ORDERED: HEPARIN SODIUM,PORCINE 10,000 UNIT in SODIUM CHLORIDE 0.9% 1,000 ML IRRIGATION PRN (07:00)
[2020-09-17 07:06] LABS: African American GFR (CKD) 68 (>60 ml/min/1.73 sqM); Anion Gap 9 mmol/L; Blood Urea Nitrogen 16 mg/dL (9-20); Calcium 9.2 mg/dL (8.4-10.2); Carbon Dioxide 20 mmol/L (22-30); Chloride 108 mmol/L (98-107); Glucose 151 mg/dL (74-99); Non-African American GFR(CKD) 59 (>60 ml/min/1.73 sqM); Potassium 4.3 mmol/L (3.5-5.1); Sodium 137 mmol/L (137-145)
[2020-09-17] MEDS: INSULIN ASPART (NovoLOG) 100 UNIT/ML VIAL SQ SCH (07:51)
[2020-09-17] MEDS: EZETIMIBE 10 MG TAB PO SCH (07:52)
[2020-09-17] MEDS: ASCORBIC ACID 500 MG TAB PO SCH (07:52)
[2020-09-17] MEDS: MULTIVITAMINS, THERA 1 EACH TAB PO SCH (07:52)
[2020-09-17] MEDS: CHOLECALCIFEROL 25 MCG (1000 IU) TABLET PO SCH (07:52)
[2020-09-17] MEDS: FERROUS SULFATE 325 MG TAB PO SCH (07:52)
[2020-09-17] MEDS: PANTOPRAZOLE 40 MG TABLET PO SCH (07:52)
[2020-09-17 07:56] LABS: Eosinophils # (M) 1.06 k/uL (0-0.7); Lymphocytes # (M) 1.17 k/uL (1.0-4.8); Monocytes # (M) 0.85 k/uL (0-1.0); Neutrophils # (M) 7.53 k/uL (1.3-7.7); Neutrophils % (M) 71 %; Nucleated Red Blood Cells 0 /100 WBC (0-0); Total Cells Counted 100
[2020-09-17 08:07] VITALS: BP 156/51; RESP 17
[2020-09-17 08:45] VITALS: PULSE 63
[2020-09-17] MEDS ORDERED: ASPIRIN 81 MG PO SCH ×2 (09:30→16:00)
--- NOTE | 2020-09-17 10:14 | PN ---
PROGRESS NOTE Mr. Cross is an 80-year-old male who presented with evidence of non ST-segment elevation myocardial infarction, underwent cardiac catheterization and was found to have critical stenosis involving the saphenous vein graft to the right coronary artery. He underwent stenting of that vessel. He is doing well this morning. His breathing is stable. He denies any symptoms of chest pain. He denies any dizziness or palpitation. He denies any nausea. He has been ambulating without much difficulty. He continues to be at this time on amlodipine 10 mg daily, Lipitor 60 mg daily, Plavix 75 mg daily, Zetia 10 mg daily, lisinopril 20 mg daily, isosorbide mononitrate 30 mg daily, metoprolol succinate 50 mg daily, and he was restarted on his Xarelto. PHYSICAL EXAMINATION: VITAL SIGNS: Blood pressure 121/60 with a heart rate 60. LUNGS: Clear. HEART: Regular rate and rhythm S1, S2. No S3. Systolic murmur, no diastolic murmur. ABDOMEN: Soft and nontender. EXTREMITIES: No edema. Right groin no hematoma. LAB DATA: Lab data revealed hemoglobin 12.5, BUN creatinine 16 and 1.16. IMPRESSION: 1. Status post non STEMI and stenting of saphenous vein graft to the right coronary artery. 2. Status post coronary artery bypass grafting. 3. Paroxysmal fibrillation. 4. Hypertension. 5. Hyperlipidemia. RECOMMENDATION: Patient should be able to be discharged home today and followed as an outpatient with Dr. Larson. I will initiate treatment with aspirin for 1 week and then that can be stopped. MMODL / IJN: [id number] /
--- NOTE | 2020-09-17 11:16 | P.DS ---
Providers Date of admission: 09/16/20 13:55 Attending physician: Shay Hood MD Consults: 09/15/20 14:37 Consult Physician Urgent Consulting Provider: Juliocesar Cloud Consult Reason/Comments: chest pain Do you want consulting provider notified?: Yes Consult Physician Urgent Consulting Provider: Cat Caal Consult Reason/Comments: Epigastric pain Do you want consulting provider notified?: Yes 09/16/20 12:45 Consult Physician Routine Consulting Provider: [facility] Consult Reason/Comments: Post Interventional patient Do you want consulting provider notified?: Already Contacted [facility] Course: Admitting/Discharge diagnoses: Unstable angina Coronary artery disease History of CABG History of recent TAVR Paroxsymal A fib, newly discovered Hypertension Hyperlipidemia Type II vwj-qjwkhhs-cuwhjhbuj diabetes mellitus Patient seen and examined at bedside. Patient denies chest pain shortness of breath nausea vomiting fevers or chills. Patient is eager to go home. Vitals on discharge: Temperature 97.9F heart rate 63 respiratory rate 17 blood pressure 156/51 before medication given Labs: White blood cell count 10.6 hemoglobin 12.5 hematocrit 30.4 platelets 244. Sodium 137 potassium 4.3 chloride 108 bicarb 20 glucose 151. Physical exam: Gen. A & O 3 Heart regular rate and rhythm with systolic murmur Lungs clear to auscultation bilaterally Extremities negative edema cyanosis or clubbing Patient is an 80-year-old male for history of coronary artery disease status post CABG requiring stenting after CABG, recent [facility] on [facility], hypertension, dyslipidemia, type 2 diabetes, and ultimately her comorbid conditions who presented to the ER with complaints of chest pain. Initial EKG showed sinus rhythm at 66 with a left bundle branch block and T-wave inversion not significantly changed from prior EKG. Initial troponin was 0.032 with slight escalation to 0.039 but remained flat. He was admitted for further monitoring secondary to concerns for unstable angina. He was seen by cardiology who recommended cardiac catheterization which was completed on 09/16 with stenting of SVG to RCA graft. Patient is doing well. 09/16/2020 echocardiogram Ejection fraction of 35-40% Apical septum LV wall motion is hypokinetic The right ventricle is moderately enlarged Mild aortic regurgitation Moderate mitral regurgitation Disposition home Condition fair Diet diabetic Follow-up with PCP in 1 week Follow-up with cardiology in 1-2 weeks Assessment: Unstable angina Coronary artery disease History of CABG History of recent TAVR Paroxsymal A fib, newly discovered Hypertension Hyperlipidemia Type II scq-okwxsou-wseowhsia diabetes mellitus Patient Condition at Discharge: Fair Plan - Discharge Summary Discharge Rx Participant: Yes New Discharge Prescriptions: New Rivaroxaban [Xarelto] 20 mg PO W/SUPPER 30 Days #30 tab Continue Aspirin [Adult Low Dose Aspirin EC] 81 mg PO DAILY Multivitamins, Thera [Multivitamin (formulary)] 1 tab PO DAILY Cholecalciferol (Vitamin D3) [Vitamin D3] 50 mcg PO DAILY Ferrous Sulfate [Iron (65 MG Elemental)] 325 mg PO DAILY Metoprolol Succinate [Toprol XL] 50 mg PO DAILY@1600 Ezetimibe [Zetia] 10 mg PO DAILY Benazepril HCl 20 mg PO DAILY@1600 Clopidogrel [Plavix] 75 mg PO DAILY@1600 Pantoprazole Sodium 40 mg PO DAILY Isosorbide Mononitrate [Isosorbide Mononitrate ER] 30 mg PO DAILY@1600 amLODIPine [Norvasc] 10 mg PO DAILY@1600 Atorvastatin [Lipitor] 60 mg PO DAILY@1600 Ascorbic Acid [Vitamin C] 500 mg PO DAILY sitaGLIPtin PHOS/metFORMIN HCL [Janumet 50-500 mg Tablet] 1 tab PO DAILY Nitroglycerin Sl Tabs [Nitrostat] 0.4 mg SL Q5M PRN PRN Reason: Chest Pain Dextran 70/Hypromellose [Genteal Tears 0.1%-0.3% Drop] 1 drop BOTH EYES QID PRN PRN Reason: Dry Eye(S) Discontinued Amoxicillin 2,000 mg PO ONCE PRN PRN Reason: 1 hour prior to dental appoint Discharge Medication List Aspirin [Adult Low Dose Aspirin EC] 81 mg PO DAILY 06/10/17 [History] Cholecalciferol (Vitamin D3) [Vitamin D3] 50 mcg PO DAILY 06/10/17 [History] Ezetimibe [Zetia] 10 mg PO DAILY 06/10/17 [History] Ferrous Sulfate [Iron (65 MG Elemental)] 325 mg PO DAILY 06/10/17 [History] Metoprolol Succinate [Toprol XL] 50 mg PO DAILY@1600 06/10/17 [History] Multivitamins, Thera [Multivitamin (formulary)] 1 tab PO DAILY 06/10/17 [History] Benazepril HCl 20 mg PO DAILY@1600 07/24/18 [History] Clopidogrel [Plavix] 75 mg PO DAILY@1600 07/02/19 [History] Pantoprazole Sodium 40 mg PO DAILY 07/02/19 [History] Isosorbide Mononitrate [Isosorbide Mononitrate ER] 30 mg PO DAILY@1600 01/01/20 [History] amLODIPine [Norvasc] 10 mg PO DAILY@1600 01/01/20 [History] Ascorbic Acid [Vitamin C] 500 mg PO DAILY 09/15/20 [History] Atorvastatin [Lipitor] 60 mg PO DAILY@1600 09/15/20 [History] Dextran 70/Hypromellose [Genteal Tears 0.1%-0.3% Drop] 1 drop BOTH EYES QID PRN 09/15/20 [History] Nitroglycerin Sl Tabs [Nitrostat] 0.4 mg SL Q5M PRN 09/15/20 [History] sitaGLIPtin PHOS/metFORMIN HCL [Janumet 50-500 mg Tablet] 1 tab PO DAILY 09/15/20 [History] Rivaroxaban [Xarelto] 20 mg PO W/SUPPER 30 Days #30 tab 09/16/20 [Rx] Follow up Appointment(s)/Referral(s): Bi Love MD [Primary Care Provider] - 1-2 days Zina Larson MD [STAFF PHYSICIAN] - 1 Week [facility] [REFERRING] - 1-2 Days Patient Instructions/Handouts: *Surgery [facility] - After Heart Catheterization - Residential Treatment Staff Instructions, A-fib (Atrial Fibrillation) (DC), Coronary Intravascular Stent Placement (DC) Activity/Diet/Wound Care/Special Instructions: DISCHARGE medication list MUST be faxed to the [facility] at discharge so rx can be ordered Discharge Disposition: HOME SELF-CARE
--- NOTE | 2020-09-19 11:04 | CDI ---
Documentation Clarification Form Date: 10/05/20 10:58:50 AM From: Meliton Chavez Admit Date: 09/16/2020 01:55:00 PM Patient Name: Dwight Cross Visit Number: [id number] Discharge Date: 09/17/2020 11:45:00 AM ATTENTION: The Clinical Documentation Specialists (CDI) and [facility] Coding Staff appreciate your assistance in clarifying documentation. Please respond to the clarification below the line at the bottom and electronically sign. The CDI & [facility] Coding staff will review the response and follow-up if needed. Please note: Queries are made part of the Legal Health Record. If you have any questions, please contact the author of this message via ITS. Dr. Plasencia, Conflicting documentation has been found in the medical record. As attending physician, please provide clarification. Progress note 09/17 indicates NSTEMI Discharge summary indicates unstable angina which codes differently than NSTEMI History/Risk Factors: LBBB, prior CABG Clinical Indicators: chest pain Treatment: PTCA of graft Please clarify which diagnosis is most appropriate: [ ] NSTEMI [ ] unstable angina only [ ] Other (please specify) [ ] Unable to determine NSTEMI with unstable angina MTDD
--- NOTE | 2020-10-12 11:41 | CDI ---
Documentation Clarification Form Date: 10/12/2020 11:31:55 AM From: Meliton Chavez Admit Date: 09/16/2020 01:55:00 PM Patient Name: Dwight Cross Visit Number: [id number] Discharge Date: 09/17/2020 11:45:00 AM ATTENTION: The Clinical Documentation Specialists (CDI) and [facility] Coding Staff appreciate your assistance in clarifying documentation. Please respond to the clarification below the line at the bottom and electronically sign. The CDI & [facility] Coding staff will review the response and follow-up if needed. Please note: Queries are made part of the Legal Health Record. If you have any questions, please contact the author of this message via ITS. Dr. Shay Hood Conflicting documentation has been found in the medical record. As attending physician, please provide clarification. Progress note 09/17 indicates NSTEMI Discharge summary states unstable angina History/Risk Factors: PTCA prior Clinical Indicators: chest pain Treatment: Please clarify which diagnosis is most appropriate: [ ] NSTEMI [ ] Unstable angina only [ ] Other (please specify) [ ] Unable to determine MTDD
== END 2020-09-17 11:45 | disposition home or self-care (01) | DRG 247 ==
LOC: EC 11:35 → 6NMEDSUR 14:52 → OBSVTOIN 09-16 13:55
PROVIDERS: ADMIT Internal Medicine; ATTEND Internal Medicine
PROC: B2111ZZ Fluoroscopy of Multiple Coronary Arteries using Low Osmolar Contrast (ICD-10-PCS; 2020-09-16)
PROC: B2131ZZ Fluoroscopy of Multiple Coronary Artery Bypass Grafts using Low Osmolar Contrast (ICD-10-PCS; 2020-09-16)
PROC: 027036Z Dilation of Coronary Artery, One Artery with Three Drug-eluting Intraluminal Devices, Percutaneous Approach (ICD-10-PCS; principal; 2020-09-16 07:30)
PROC: 4A023N7 Measurement of Cardiac Sampling and Pressure, Left Heart, Percutaneous Approach (ICD-10-PCS; 2020-09-16 07:30)
DX: I21.4 Non-ST elevation (NSTEMI) myocardial infarction (principal); I25.710 Atherosclerosis of autologous vein coronary artery bypass graft(s) with unstable angina pectoris; I25.110 Atherosclerotic heart disease of native coronary artery with unstable angina pectoris; I11.9 Hypertensive heart disease without heart failure; E78.00 Pure hypercholesterolemia, unspecified; I48.0 Paroxysmal atrial fibrillation; E11.51 Type 2 diabetes mellitus with diabetic peripheral angiopathy without gangrene; D72.829 Elevated white blood cell count, unspecified; Z79.02 Long term (current) use of antithrombotics/antiplatelets; Z95.1 Presence of aortocoronary bypass graft; Z87.891 Personal history of nicotine dependence; Z95.2 Presence of prosthetic heart valve; Z79.01 Long term (current) use of anticoagulants; H91.90 Unspecified hearing loss, unspecified ear; I25.2 Old myocardial infarction; I44.7 Left bundle-branch block, unspecified; K21.9 Gastro-esophageal reflux disease without esophagitis; K59.00 Constipation, unspecified; Z79.82 Long term (current) use of aspirin; Z79.899 Other long term (current) drug therapy
CPT/HCPCS: 36415; 71046; 74176; 80048; 80053; 80061; 83690; 83735; 84484; 85025; 85610; 85730; 93005; 93306; 93455; 99285

== ENCOUNTER 2021-06-05 18:23 | Emergency (ER) | payer MEDICARE ==
[~2021-06-05 18:23] MED LIST changes: -ALPRAZolam 0.25 MG TAB PO PRN; -ALPRAZolam 0.5 MG TAB PO PRN; -ASPIRIN 325 MG TAB PO STA; +EPINEPHrine 10 ML SYRINGE (0.1 MG/ML) ONE; -SODIUM CHLORIDE 0.9% 1,000 ML in EMPTY BAG 1 BAG IV ONE
[2021-06-05 18:49] VITALS: PULSE 0; RESP 0
--- NOTE | 2021-06-05 20:02 | ED ---
General Adult HPI - General Chief complaint: Cardiac Arrest/CPR Stated complaint: UNRESPONSIVE Time Seen by Provider: 06/05/21 18:30 Source: family, EMS, RN notes reviewed, old records reviewed Mode of arrival: EMS Limitations: altered mental status, physical limitation - History of Present Illness Initial comments: 81 yo male who presented in cardiac arrest. Patient was initially found to be in asystole by paramedics. His arrest was not witnessed. He was found in the bathroom by his . There was some facial trauma according to the . Par amedics intubated and begun resuscitation according to ACLS protocol. They had a brief return of spontaneous circulation. His total downtime with paramedics and prior to arrival was somewhat between one and 2 hours. He received a total epinephrine doses by EMS. He received CPR with the Petr device. He had a history of CAD, heart felt issues. - Related Data Home Medications Medication Instructions Recorded Confirmed Aspirin [Adult Low Dose Aspirin EC] 81 mg PO DAILY 06/10/17 09/15/20 Cholecalciferol (Vitamin D3) 50 mcg PO DAILY 06/10/17 09/15/20 [Vitamin D3] Ezetimibe [Zetia] 10 mg PO DAILY 06/10/17 09/15/20 Ferrous Sulfate [Iron (65 MG 325 mg PO DAILY 06/10/17 09/15/20 Elemental)] Metoprolol Succinate [Toprol XL] 50 mg PO DAILY@159906/10/17 09/15/20 Multivitamins, Thera [Multivitamin 1 tab PO DAILY 06/10/17 09/15/20 (formulary)] Benazepril HCl 20 mg PO DAILY@159907/24/18 09/15/20 Clopidogrel [Plavix] 75 mg PO DAILY@159907/02/19 09/15/20 Pantoprazole Sodium 40 mg PO DAILY 07/02/19 09/15/20 Isosorbide Mononitrate [Isosorbide 30 mg PO DAILY@159901/01/20 09/15/20 Mononitrate ER] amLODIPine [Norvasc] 10 mg PO DAILY@159901/01/20 09/15/20 Ascorbic Acid [Vitamin C chew] 500 mg PO DAILY 09/15/20 09/15/20 Atorvastatin [Lipitor] 60 mg PO DAILY@159909/15/20 09/15/20 Dextran 70/Hypromellose [Genteal 1 drop BOTH EYES QID PRN 09/15/20 09/15/20 Tears 0.1%-0.3% Drop] Nitroglycerin Sl Tabs [Nitrostat] 0.4 mg SL Q5M PRN 09/15/20 09/15/20 sitaGLIPtin PHOS/metFORMIN HCL 1 tab PO DAILY 09/15/20 09/15/20 [Janumet 50-500 mg Tablet] Previous Rx's Medication Instructions Recorded Rivaroxaban [Xarelto] 20 mg PO W/SUPPER 30 Days #30 tab 09/16/20 Allergies Allergy/AdvReac Type Severity Reaction Status Date / Time No Known Allergies Allergy Verified 09/15/20 14:21 Review of Systems ROS Statement: Those systems with pertinent positive or pertinent negative responses have been documented in the HPI. ROS Other: All systems not noted in ROS Statement are negative. Past Medical History Past Medical History: Coronary Artery Disease (CAD), Diabetes Mellitus, Hearing Disorder / Deafness, Hyperlipidemia, Hypertension Additional Past Medical History / Comment(s): SOB w/exertion, "LEAKY HEART VALVE." History of Any Multi-Drug Resistant Organisms: None Reported Past Surgical History: Coronary Bypass/CABG, Heart Catheterization With Stent Additional Past Surgical History / Comment(s): CABG 1989 (SAENZ to the LAD, vein graft to the RCA, vein graft to the third obtuse marginal). LT CAROTID ARTERY endarterectomy 2008. PTCA W/ 2 STENTS. 08/05/18 stent RCA, 07/03/19 stent to RCA graft, 01/01/2020 stent to the RCA graft, heart valve replacement 03/03/20 Past Anesthesia/Blood Transfusion Reactions: No Reported Reaction Date of Last Stent Placement:: 01/01/20 Past Psychological History: No Psychological Hx Reported Smoking Status: Former smoker Past Alcohol Use History: Occasional Past Drug Use History: None Reported - Past Family History Mother Family Medical History: Cancer General Exam Limitations: no limitations General appearance: other (Unresponsive, no spontaneous movement, cyanotic) Eye exam: Absent: PERRL (Pupils are nonreactive 5 mm bilaterally, no corneal reflex) Respiratory exam: Present: other (Bilateral breath sounds with BVM no spontaneous respirations.) Cardiovascular Exam: Present: other (No spontaneous heart sounds.) GI/Abdominal exam: Present: distended. Absent: tenderness, guarding, rebound Neurological exam: Present: other (No signs of life.) Skin exam: Present: cyanosis Course Vital Signs 06/05/21 18:42 Pulse Rate 0 L Respiratory 0 L Rate Medical Decision Making - Medical Decision Making 81-year-old male who presented in cardiac arrest with prolonged downtime. Pupils are fixed and dilated there is no signs of life. He's in the St. bradycardic wide complex PEA very close to asystole on initial assessment. Bedside ultrasound shows no cardiac activity. Despite resuscitative efforts ultimately time of is called at 1828. Patient is not a candidate for medical dosimetrist will be taken to the home. Primary care has been paged. Disposition Clinical Impression: Cardiac arrest Disposition: Condition: Undetermined Is patient prescribed a controlled substance at d/c from ED?: No Referrals: Bi Love MD [Primary Care Provider] - 1-2 days Time of Disposition: 18:28 Preliminary Cause of : Cardiac arrest
== END 2021-06-05 22:20 | disposition expired ==
LOC: EC 18:23
DX: I46.9 Cardiac arrest, cause unspecified (principal); E11.9 Type 2 diabetes mellitus without complications; I10 Essential (primary) hypertension; I25.10 Atherosclerotic heart disease of native coronary artery without angina pectoris; E78.5 Hyperlipidemia, unspecified; Z87.891 Personal history of nicotine dependence; Z95.5 Presence of coronary angioplasty implant and graft; Z79.82 Long term (current) use of aspirin; Z79.84 Long term (current) use of oral hypoglycemic drugs; Z79.01 Long term (current) use of anticoagulants; Z79.02 Long term (current) use of antithrombotics/antiplatelets; Z79.899 Other long term (current) drug therapy
CPT/HCPCS: 99285; J0171